=== PATIENT | female | born 1970 | race Caucasian/White ===

== ENCOUNTER 2016-08-03 04:35 | Emergency (ER) | payer MEDICAID ==
[~2016-08-03] VITALS: Ht 170.2 cm; Wt 79.4 kg
[~2016-08-03 04:35] MED LIST: LISI5TAB18 PO; METF500T2 PO; MIC5 PO; NOVR SUBQ
[2016-08-03 04:36] VITALS: BP 157/100
--- NOTE | 2016-08-03 04:48 | NUR ---
PT TAKEN TO BED 6
[2016-08-03] MEDS ORDERED: NACL 0.9% 1,000 ML IV ONE ×2 (04:50)
[2016-08-03] MEDS ORDERED: INSULIN HUMAN REGULAR 100 UNITS/ML 10 ML VIAL IVP ONE (04:50)
--- NOTE | 2016-08-03 04:50 | NUR ---
Dr. Zhu evaluating patient at bedside.
--- NOTE | 2016-08-03 04:55 | NUR ---
45Y F PRESENT TO ER C/O OF HIGH BLOOD SUGAR. PT STATES SHE CHECKED HER SUGAR AT HOME AND IT READS " HIGH TO READ". NO DISTRESS, DENIES PAIN.
[2016-08-03 05:01] LABS: BASOPHILS # (AUTO) 0.3 K/uL (0.00-0.22); EOSINOPHILS # (AUTO) 0.1 K/uL (0-0.4); EOSINOPHILS % (AUTO) 1.5 % (0.0-4.0); HEMATOCRIT 47.3 % (36-48); HEMOGLOBIN 15.3 g/dL (12.0-16.0); LYMPHOCYTES % (AUTO) 11.3 % (20.5-51.1); MEAN CORPUSCULAR HEMOGLOBIN 29 pg (27-31); MEAN CORPUSCULAR HGB CONC 32 g/dL (33-37); MEAN CORPUSCULAR VOLUME 90 fL (80-94); MONOCYTES # (AUTO) 0.5 K/uL (0.8-1.0); MONOCYTES % (AUTO) 5.2 % (1.7-9.3); PLATELET COUNT (AUTO) 199 K/uL (140-450); RED BLOOD CELL COUNT(AUTO) 5.28 MIL/uL (4.20-5.40); RED CELL DISTRIBUTION WIDTH 12.7 % (11.6-13.7); WHITE BLOOD COUNT (AUTO) 8.9 K/uL (4.8-10.8)
[2016-08-03 05:09] LABS: ACETONE, SERUM NEGATIVE (NEGATIVE)
[2016-08-03 05:19] LABS: ALANINE AMINOTRANSFERASE 31 U/L (12-78); ALBUMIN 3.7 g/dL (3.4-5.0); ALKALINE PHOSPHATASE 119 U/L (46-116); ANION GAP 17.4 (8-16); ASPARTATE AMINOTRANSFERASE 14 U/L (15-37); CALCIUM 8.7 mg/dL (8.5-10.1); CARBON DIOXIDE 22.5 mmol/L (21-32); CHLORIDE 93 mmol/L (98-107); CREATININE 1.3 mg/dL (0.6-1.3); GFR ARICAN-AMERICAN 57 mL/min (>90); GFR NON ARICAN-AMERICAN 47 mL/min (>90); POTASSIUM 3.9 mmol/L (3.5-5.1); SODIUM SERUM 129 mmol/L (136-145); TOTAL BILIRUBIN 0.9 mg/dL (0.0-1.0); TOTAL PROTEIN, SERUM 7.9 g/dL (6.4-8.2); UREA NITROGEN, BLOOD 11 mg/dL (7-18)
[2016-08-03 05:21] LABS: GLUCOSE 666 mg/dL (74-106)
[2016-08-03] MEDS ORDERED: INSULIN HUMAN REGULAR 100 UNITS/ML 10 ML VIAL SUBQ ONE ×2 (05:30→07:10)
[2016-08-03 06:26] LABS: APPEARANCE,URINE CLEAR (CLEAR); BILIRUBIN,URINE NEGATIVE (NEGATIVE); BLOOD, URINE NEGATIVE (NEGATIVE); COLOR,URINE YELLOW (YELLOW); LEUKOCYTE ESTERASE ,URINE NEGATIVE (NEGATIVE); NITRITE, URINE NEGATIVE (NEGATIVE); PROTEIN,URINE NEGATIVE (NEGATIVE); UGLUCOSE 3+ (NEGATIVE); UROBILINOGEN,URINE 0.2 EU/dL (0.2 - 1)
--- NOTE | 2016-08-03 07:15 | NUR ---
REPORT GIVEN TO CRISTIANO BARNARD.
[2016-08-03 08:07] VITALS: BP 146/94
--- NOTE | 2016-08-03 08:08 | NUR ---
Patient discharged with v/s stable. Written and verbal after care instructions given and explained. Patient alert, oriented and verbalized understanding of instructions. Ambulatory with steady gait. All questions addressed prior to discharge. ID band removed. Patient advised to follow up with PMD. Rx of LISINOPRIL AND NOVOLOG MIX 70/30 given. Patient educated on indication of medication including possible reaction and side effects. Opportunity to ask questions provided and answered.
== END 2016-08-03 07:20 | disposition home or self-care (01) ==
LOC: MED 04:35
CPT/HCPCS: 36415; 80053; 81003; 82009; 85025; 96372; 99284; J1815; J7030

== ENCOUNTER 2016-11-26 02:18 | Emergency (ER) | payer SELFPAY ==
[~2016-11-26] VITALS: Ht 165.1 cm; Wt 80.5 kg
[2016-11-26 02:25] VITALS: BP 163/139
[2016-11-26 02:53] LABS: HEMATOCRIT 44.8 % (36-48); HEMOGLOBIN 14.9 g/dL (12.0-16.0); MEAN CORPUSCULAR HEMOGLOBIN 30 pg (27-31); MEAN CORPUSCULAR HGB CONC 33 g/dL (33-37); MEAN CORPUSCULAR VOLUME 91 fL (80-94); PLATELET COUNT (AUTO) 213 K/uL (140-450); RED BLOOD CELL COUNT(AUTO) 4.95 MIL/uL (4.20-5.40); WHITE BLOOD COUNT (AUTO) 7.4 K/uL (4.8-10.8)
[2016-11-26 02:59] LABS: BASOPHILS % (MANUAL) 1 % (0-2); EOSINOPHILS % (MANUAL) 2 % (0-4); LYMPHOCYTES % (MANUAL) 31 % (20-46); MONOCYTES % (MANUAL) 4 % (5-12)
[2016-11-26 03:08] LABS: ALBUMIN 3.6 g/dL (3.4-5.0); ANION GAP 10.1 (8-16); CARBON DIOXIDE 31.4 mmol/L (21-32); CREATININE 0.9 mg/dL (0.6-1.3); POTASSIUM 3.5 mmol/L (3.5-5.1); TOTAL BILIRUBIN 0.3 mg/dL (0.0-1.0)
[2016-11-26 03:58] VITALS: BP 149/98
== END 2016-11-26 03:58 | disposition home or self-care (01) ==
LOC: MED 02:18
DX: J06.9 Acute upper respiratory infection, unspecified (principal); E11.9 Type 2 diabetes mellitus without complications; F17.210 Nicotine dependence, cigarettes, uncomplicated; I10 Essential (primary) hypertension; Z91.14 Patient's other noncompliance with medication regimen; Z88.8 Allergy status to other drugs, medicaments and biological substances; Z79.4 Long term (current) use of insulin; Z79.899 Other long term (current) drug therapy
CPT/HCPCS: 71010; 80053; 82948; 85025; 93005; 99285

== ENCOUNTER 2017-01-19 03:33 | Emergency (ER) | payer SELFPAY ==
[~2017-01-19] VITALS: Ht 170.2 cm; Wt 72.6 kg
[~2017-01-19 03:33] MED LIST changes: -METF500T2 PO; -MIC5 PO
[2017-01-19 03:40] VITALS: BP 152/102
--- NOTE | 2017-01-19 03:45 | NUR ---
PT TAKEN TO BED 7
--- NOTE | 2017-01-19 03:46 | NUR ---
BERENICE BAUTISTA MADE AWARE OF PT'S GLUCOSE LEVELS.
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
--- NOTE | 2017-01-19 04:01 | NUR ---
Dr. Levy evaluating patient at bedside.
[2017-01-19] MEDS ORDERED: HYDROcodone/APAP 5/325 MG 1 TAB TAB PO ONE (04:05)
[2017-01-19] MEDS ORDERED: KETOROLAC 60 MG/2 ML VIAL IM ONE (04:05)
--- NOTE | 2017-01-19 04:05 | NUR ---
X-Ray at bedside.
[2017-01-19 04:50] VITALS: BP 135/84
--- NOTE | 2017-01-19 04:50 | NUR ---
Patient discharged with v/s stable. Written and verbal after care instructions given and explained. Patient alert, oriented and verbalized understanding of instructions. Ambulatory with steady gait. All questions addressed prior to discharge. ID band removed. Patient advised to follow up with PMD OR RETURN TO ER IF CONDITION WORSENS Rx of IBUPROFEN AND TRAMADOL given. Patient educated on indication of medication including possible reaction and side effects.PER ER MD PT TO CONTINUE TAKING MEDS FOR DM AND F/U WITH PMD. Opportunity to ask questions provided and answered.
== END 2017-01-19 04:50 | disposition home or self-care (01) ==
LOC: MED 03:33
DX: S63.502A Unspecified sprain of left wrist, initial encounter (principal); E11.9 Type 2 diabetes mellitus without complications; I10 Essential (primary) hypertension; Z88.8 Allergy status to other drugs, medicaments and biological substances; Z79.4 Long term (current) use of insulin; Z79.899 Other long term (current) drug therapy; Z87.891 Personal history of nicotine dependence; W18.2XXA Fall in (into) shower or empty bathtub, initial encounter; Z91.81 History of falling; Y93.F9 Activity, other caregiving; Y92.091 Bathroom in other non-institutional residence as the place of occurrence of the external cause; Y99.8 Other external cause status
CPT/HCPCS: 29125; 73130; 82948; 96372; 99284; J1885; Q0092

== ENCOUNTER 2017-04-05 02:21 | Emergency (ER) | payer SELFPAY ==
[~2017-04-05] VITALS: Ht 167.6 cm; Wt 72.1 kg
[2017-04-05 02:26] VITALS: BP 177/99
--- NOTE | 2017-04-05 02:26 | NUR ---
TO ER BED 11
[2017-04-05 02:34] VITALS: BP 177/99
[2017-04-05] MEDS ORDERED: IBUPROFEN 600 MG TAB PO ONE (02:35)
--- NOTE | 2017-04-05 02:48 | NUR ---
PATIENT PRESENTS TO ED WITH C/O LEFT INDEX FINGER PAIN. PT DENIES N/V/D; SKIN IS PINK/WARM/DRY; AAOX4 WITH EVEN AND STEADY GAIT; LUNGS CLEAR BL; HR EVEN AND REGULAR; PT DENIES ANY FEVER, CP, SOB, OR COUGH AT THIS TIME; PATIENT STATES PAIN OF 9/10 AT THIS TIME; VSS; PATIENT POSITIONED FOR COMFORT; HOB ELEVATED; BEDRAILS UP X2; BED DOWN. ER MD MADE AWARE OF PT STATUS.
== END 2017-04-05 04:40 | disposition home or self-care (01) ==
LOC: MED 02:21
DX: S62.615A Displaced fracture of proximal phalanx of left ring finger, initial encounter for closed fracture (principal); E11.9 Type 2 diabetes mellitus without complications; I10 Essential (primary) hypertension; F17.210 Nicotine dependence, cigarettes, uncomplicated; Z88.8 Allergy status to other drugs, medicaments and biological substances; Z79.899 Other long term (current) drug therapy; W19.XXXA Unspecified fall, initial encounter; Y93.89 Activity, other specified; Y92.89 Other specified places as the place of occurrence of the external cause; Y99.8 Other external cause status
CPT/HCPCS: 29130; 73140; 82948; 99284; Q0092

== ENCOUNTER 2018-01-28 00:35 | Emergency (ER) | payer MEDICAID ==
[~2018-01-28] VITALS: Ht 172.7 cm; Wt 77.1 kg
[2018-01-28 00:38] VITALS: BP 152/90
--- NOTE | 2018-01-28 00:38 | NUR ---
TO BED # 9 AMBULATORY, REPORT GIVEN TO KATALINA BARNARD
--- NOTE | 2018-01-28 00:40 | NUR ---
ASSUMED CARE OF PT AT THIS TIME. C/O ELEVATED BLOOD GLUCOSE X 3 WEEKS AND UTI SYMPTOMS X 1 WEEK. AAOX4 WITH EVEN AND STEADY GAIT; PATIENT STATES PAIN OF 7/10; VSS; PATIENT POSITIONED FOR COMFORT; HOB ELEVATED; BEDRAILS UP X2; BED DOWN. ER MD MADE AWARE OF PT STATUS. WILL CONTINUE TO MONITOR.
--- NOTE | 2018-01-28 00:56 | NUR ---
Dr. Leach evaluating patient at bedside.
[2018-01-28] MEDS ORDERED: NACL 0.9% 1,000 ML IV ONE (00:59)
[2018-01-28 01:38] LABS: BASOPHILS # (AUTO) 0.1 K/uL (0.00-0.22); BASOPHILS % (AUTO) 0.9 % (0.0-2.0); EOSINOPHILS # (AUTO) 0.1 K/uL (0-0.4); EOSINOPHILS % (AUTO) 1.2 % (0.0-4.0); HEMATOCRIT 46.7 % (36-48); HEMOGLOBIN 15.4 g/dL (12.0-16.0); LYMPHOCYTES # (AUTO) 1.2 K/uL (2.5-16.5); LYMPHOCYTES % (AUTO) 17.9 % (20.5-51.1); MEAN CORPUSCULAR HEMOGLOBIN 29 pg (27-31); MEAN CORPUSCULAR HGB CONC 33 g/dL (33-37); MEAN CORPUSCULAR VOLUME 88.3 fL (80-94); MONOCYTES # (AUTO) 0.6 K/uL (0.8-1.0); MONOCYTES % (AUTO) 8.9 % (1.7-9.3); NEUTROPHILS # (AUTO) 4.9 K/uL (1.8-7.7); NEUTROPHILS % (AUTO) 71.1 % (42.2-75.2); PLATELET COUNT (AUTO) 263 K/uL (140-450); RED BLOOD CELL COUNT(AUTO) 5.29 MIL/uL (4.20-5.40); RED CELL DISTRIBUTION WIDTH 13.5 % (11.6-13.7); WHITE BLOOD COUNT (AUTO) 6.9 K/uL (4.8-10.8)
[2018-01-28 01:59] LABS: ALBUMIN 3.8 g/dL (3.4-5.0); CARBON DIOXIDE 29.1 mmol/L (21-32); POTASSIUM 4.1 mmol/L (3.5-5.1); TOTAL BILIRUBIN 0.6 mg/dL (0.0-1.0)
[2018-01-28 02:02] LABS: CREATININE 0.8 mg/dL (0.6-1.3)
[2018-01-28 02:30] VITALS: BP 148/89
--- NOTE | 2018-01-28 02:30 | NUR ---
Patient discharged with v/s stable. Written and verbal after care instructions given and explained. Patient alert, oriented and verbalized understanding of instructions. Ambulatory with steady gait. All questions addressed prior to discharge. ID band removed. Patient advised to follow up with PMD. Rx of SIMVASTATIN, LISINOPRIL, NOVOLIN N, CIPRO, AND PYRIDIUM given. Patient educated on indication of medication including possible reaction and side effects. Opportunity to ask questions provided and answered.
== END 2018-01-28 02:30 | disposition home or self-care (01) ==
LOC: MED 00:35
DX: E11.65 Type 2 diabetes mellitus with hyperglycemia (principal); Z79.4 Long term (current) use of insulin; N39.0 Urinary tract infection, site not specified; I10 Essential (primary) hypertension; Z88.8 Allergy status to other drugs, medicaments and biological substances; Z79.899 Other long term (current) drug therapy
CPT/HCPCS: 36415; 80053; 81002; 81025; 82948; 83690; 85025; 96360; 99283; J7030

== ENCOUNTER 2018-02-15 04:40 | Emergency (ER) | payer MEDICAID ==
[~2018-02-15] VITALS: Ht 170.2 cm; Wt 74.8 kg
[2018-02-15 04:46] VITALS: BP 152/82
[2018-02-15] MEDS ORDERED: NACL 0.9% 500 ML IV ONE (05:04)
[2018-02-15] MEDS ORDERED: ONDANSETRON 4 MG/2 ML VIAL IVP ONE (05:05)
[2018-02-15] MEDS ORDERED: KETOROLAC 30 MG/ML VIAL IVP ONE (05:05)
[2018-02-15 05:56] LABS: BASOPHILS % (AUTO) 0.1 % (0.0-2.0); EOSINOPHILS % (AUTO) 0.2 % (0.0-4.0); HEMATOCRIT 50.6 % (36-48); HEMOGLOBIN 16.6 g/dL (12.0-16.0); LYMPHOCYTES # (AUTO) 0.4 K/uL (2.5-16.5); LYMPHOCYTES % (AUTO) 4.8 % (20.5-51.1); MEAN CORPUSCULAR HEMOGLOBIN 29 pg (27-31); MEAN CORPUSCULAR HGB CONC 33 g/dL (33-37); MEAN CORPUSCULAR VOLUME 87.7 fL (80-94); MONOCYTES # (AUTO) 0.9 K/uL (0.8-1.0); MONOCYTES % (AUTO) 10.8 % (1.7-9.3); NEUTROPHILS # (AUTO) 7.1 K/uL (1.8-7.7); NEUTROPHILS % (AUTO) 84.1 % (42.2-75.2); PLATELET COUNT (AUTO) 149 K/uL (140-450); RED BLOOD CELL COUNT(AUTO) 5.77 MIL/uL (4.20-5.40); RED CELL DISTRIBUTION WIDTH 13.5 % (11.6-13.7); WHITE BLOOD COUNT (AUTO) 8.5 K/uL (4.8-10.8)
[2018-02-15 06:05] LABS: ALBUMIN 3.4 g/dL (3.4-5.0); ANION GAP 15.1 (8-16); CARBON DIOXIDE 28.4 mmol/L (21-32); POTASSIUM 3.5 mmol/L (3.5-5.1); TOTAL BILIRUBIN 1.1 mg/dL (0.0-1.0)
[2018-02-15] MEDS ORDERED: INSULIN REGULAR, HUMAN 100 UNIT/ML VIAL IVP ONE (06:10)
[2018-02-15 06:33] VITALS: BP 152/82
== END 2018-02-15 06:33 | disposition home or self-care (01) ==
LOC: MED 04:40
DX: A08.4 Viral intestinal infection, unspecified (principal); E11.9 Type 2 diabetes mellitus without complications; I10 Essential (primary) hypertension; Z88.5 Allergy status to narcotic agent; Z79.899 Other long term (current) drug therapy; Z79.4 Long term (current) use of insulin
CPT/HCPCS: 36415; 80053; 85025; 96361; 96374; 96375; 99283; J1885; J2405; J7030; J1815

== ENCOUNTER 2018-03-17 01:11 | Emergency (ER) | payer MEDICAID ==
[~2018-03-17] VITALS: Ht 170.2 cm; Wt 76.0 kg
[2018-03-17 01:23] VITALS: BP 147/101
--- NOTE | 2018-03-17 01:30 | NUR ---
PT PRESENTS TO ED WITH C/O COUGH. LUNG SOUNDS CLEAR TO ASCULTATION. NO OBVIOUS S/S OF DISTRESS NOTED. PT PLACED INTO BED, PENDING MD SOSA. PMH--DENIES
--- NOTE | 2018-03-17 01:59 | NUR ---
Patient discharged with v/s stable. Written and verbal after care instructions given and explained. Patient alert, oriented and verbalized understanding of instructions. Ambulatory with steady gait. All questions addressed prior to discharge. ID band removed. Patient advised to follow up with PMD. Rx of PREDNISONE, PROMETHAZINE given. Patient educated on indication of medication including possible reaction and side effects. Opportunity to ask questions provided and answered.
[2018-03-17 02:00] VITALS: BP 141/97
== END 2018-03-17 02:00 | disposition home or self-care (01) ==
LOC: MED 01:11
DX: R05 Cough (principal); J02.9 Acute pharyngitis, unspecified; R51 Headache; E11.9 Type 2 diabetes mellitus without complications; I10 Essential (primary) hypertension; Z79.4 Long term (current) use of insulin; Z79.899 Other long term (current) drug therapy; Z88.5 Allergy status to narcotic agent
CPT/HCPCS: 99283

== ENCOUNTER 2018-06-07 11:56 | Emergency (ER) | payer MEDICAID ==
[~2018-06-07] VITALS: Ht 172.7 cm; Wt 74.1 kg
[2018-06-07 12:20] VITALS: BP 150/51
--- NOTE | 2018-06-07 12:51 | NUR ---
PATIENT AMBULATED TO BED 2.
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
[2018-06-07 13:56] VITALS: BP 142/52
--- NOTE | 2018-06-07 13:58 | NUR ---
Patient discharged with v/s stable. Written and verbal after care instructions given and explained. Patient alert, oriented and verbalized understanding of instructions. Ambulatory with to car. All questions addressed prior to discharge. ID band removed. Patient advised to follow up with PMD. Rx of VALIUM, NOVOLOG, ACCU-CHECK, [employer] SUPER THIN 11 given. Patient educated on indication of medication including possible reaction and side effects. Opportunity to ask questions provided and answered.
== END 2018-06-07 13:58 | disposition home or self-care (01) ==
LOC: MED 11:56
DX: E11.65 Type 2 diabetes mellitus with hyperglycemia (principal); M54.2 Cervicalgia; I10 Essential (primary) hypertension; E78.5 Hyperlipidemia, unspecified; Z76.0 Encounter for issue of repeat prescription; Z88.5 Allergy status to narcotic agent; Z79.4 Long term (current) use of insulin; Z79.899 Other long term (current) drug therapy
CPT/HCPCS: 82948; 99283

== ENCOUNTER 2018-06-29 01:36 | Emergency (ER) | payer SELFPAY ==
--- NOTE | 2018-06-29 01:40 | NUR ---
CALLED FOR PATIENT TO TRIAGE, NO RESPONSE AT THIS TIME
--- NOTE | 2018-06-29 02:00 | NUR ---
PATIENT CALLED FOR TRIAGE. NO RESPONSE.
--- NOTE | 2018-06-29 02:24 | NUR ---
PATIENT CALLED, NO REPONSE. LWBS.
== END 2018-06-29 02:24 | disposition left against medical advice (07) ==
LOC: MED 01:36
DX: H92.09 Otalgia, unspecified ear (principal); Z53.21 Procedure and treatment not carried out due to patient leaving prior to being seen by health care provider

== ENCOUNTER 2018-07-01 04:33 | Emergency (ER) | payer MEDICAID ==
[~2018-07-01] VITALS: Ht 170.2 cm; Wt 73.9 kg
[2018-07-01 04:36] VITALS: BP 140/77
--- NOTE | 2018-07-01 04:36 | NUR ---
TO BED # 2 AMBULATORY
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
--- NOTE | 2018-07-01 04:41 | NUR ---
Dr. Tuttle evaluating patient at bedside.
[2018-07-01] MEDS ORDERED: CEPHALEXIN 500 MG CAP PO ONE (04:45)
--- NOTE | 2018-07-01 04:45 | NUR ---
DR BLAKELY MADE AWARE OF BLOOD GLUCOSE 256. OK FOR DISCHARGE.
[2018-07-01 05:10] VITALS: BP 140/77
== END 2018-07-01 05:10 | disposition home or self-care (01) ==
LOC: MED 04:33
DX: L03.032 Cellulitis of left toe (principal); E11.9 Type 2 diabetes mellitus without complications; I10 Essential (primary) hypertension; Z88.5 Allergy status to narcotic agent; Z79.4 Long term (current) use of insulin; Z79.899 Other long term (current) drug therapy
CPT/HCPCS: 82948; 99283

== ENCOUNTER 2018-07-03 23:49 | Emergency (ER) | payer MEDICAID ==
[~2018-07-03] VITALS: Ht 170.2 cm; Wt 73.9 kg
[2018-07-03 23:50] VITALS: BP 155/89
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
--- NOTE | 2018-07-03 23:50 | NUR ---
PT TRIAGED AT BEDSIDE, PT WITH FAMILY/FRIEND
--- NOTE | 2018-07-04 00:13 | NUR ---
Dr. Leach evaluating patient at bedside.
--- NOTE | 2018-07-04 00:15 | NUR ---
X-Ray at bedside.
--- NOTE | 2018-07-04 00:17 | NUR ---
PT TAKEN TO XRAY
[2018-07-04] MEDS ORDERED: HYDROcodone/APAP 5/325 MG 1 TAB TAB PO ONE (00:30)
[2018-07-04] MEDS ORDERED: LIDOCAINE 1% 500 MG/50 ML VIAL INJ SCH (00:30)
--- NOTE | 2018-07-04 00:35 | NUR ---
UNABLE TO REMOVE 1% LIDOCAINE 500MG/5OML ORDERED FROM ER PYXIS. DR FRYE MADE AWARE. VERBAL ORDER FOR 1% LIDOCAINE 50MG/5ML TO BE ADMINISTERED BY ER MD FOR I&D PROCEDURE. MED OVERRODE FROM ER PYXIS.
[2018-07-04] MEDS ORDERED: LIDOCAINE MPF 1% 5mL VIAL ONE (00:50)
--- NOTE | 2018-07-04 01:00 | NUR ---
DR FRYE AT BEDSIDE FOR L TOE I&D
[2018-07-04] MEDS ORDERED: BACITRACIN OINT 500 UNITS/GM PKT TP ONE (01:15)
--- NOTE | 2018-07-04 01:20 | NUR ---
L TOE APPLIED WITH BACITRACIN, COVERED IN NONADHERENT GAUZE AND KERLIX WRAP, PT TOLERATED WELL, +CMS DISTALLY.
[2018-07-04 01:24] VITALS: BP 127/86
--- NOTE | 2018-07-04 01:25 | NUR ---
Patient discharged with v/s stable. Written and verbal after care instructions given and explained. Patient alert, oriented and verbalized understanding of instructions. Ambulatory with steady gait. All questions addressed prior to discharge. ID band removed. Patient advised to follow up with PMD. Rx of BACTRIM, ULTRAM given; INSTRUCTED TO TAKE KEEP TAKING KEFLEX PRESCRIBED. Patient educated on indication of medication including possible reaction and side effects. Opportunity to ask questions provided and answered.
== END 2018-07-04 01:25 | disposition home or self-care (01) ==
LOC: MED 23:49
DX: L03.032 Cellulitis of left toe (principal); E11.9 Type 2 diabetes mellitus without complications; I10 Essential (primary) hypertension; E78.5 Hyperlipidemia, unspecified; Z79.899 Other long term (current) drug therapy; Z88.5 Allergy status to narcotic agent
CPT/HCPCS: 10060; 73660; 82948; 99283; J2001

== ENCOUNTER 2018-09-10 02:00 | Emergency (ER) | payer MEDICAID ==
[~2018-09-10] VITALS: Ht 170.2 cm; Wt 70.3 kg
[2018-09-10 02:00] VITALS: BP 154/98
--- NOTE | 2018-09-10 02:20 | NUR ---
PT AMBULATED TO BED #10
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
[2018-09-10] MEDS ORDERED: NACL 0.9% 1,000 ML IV ONE (02:35)
[2018-09-10 02:47] LABS: APPEARANCE,URINE CLEAR (CLEAR); BILIRUBIN,URINE NEGATIVE (NEGATIVE); BLOOD, URINE NEGATIVE (NEGATIVE); COLOR,URINE YELLOW (YELLOW); LEUKOCYTE ESTERASE ,URINE NEGATIVE (NEGATIVE); NITRITE, URINE NEGATIVE (NEGATIVE); UGLUCOSE 3+ (NEGATIVE)
[2018-09-10 02:48] LABS: BASOPHILS % (AUTO) 0.3 % (0.0-2.0); EOSINOPHILS # (AUTO) 0.1 K/uL (0-0.4); HEMATOCRIT 42.5 % (36-48); HEMOGLOBIN 14.6 g/dL (12.0-16.0); LYMPHOCYTES # (AUTO) 1.6 K/uL (2.5-16.5); LYMPHOCYTES % (AUTO) 27.4 % (20.5-51.1); MEAN CORPUSCULAR HEMOGLOBIN 31 pg (27-31); MEAN CORPUSCULAR HGB CONC 34 g/dL (33-37); MEAN CORPUSCULAR VOLUME 89.7 fL (80-94); MONOCYTES # (AUTO) 0.5 K/uL (0.8-1.0); MONOCYTES % (AUTO) 8.7 % (1.7-9.3); NEUTROPHILS # (AUTO) 3.5 K/uL (1.8-7.7); NEUTROPHILS % (AUTO) 61.6 % (42.2-75.2); PLATELET COUNT (AUTO) 174 K/uL (140-450); RED BLOOD CELL COUNT(AUTO) 4.73 MIL/uL (4.20-5.40); RED CELL DISTRIBUTION WIDTH 12.9 % (11.6-13.7); WHITE BLOOD COUNT (AUTO) 5.7 K/uL (4.8-10.8)
[2018-09-10] MEDS ORDERED: LIDOCAINE/EPI 1% 1:100000 20 ML VIAL INJ ONE (02:50)
--- NOTE | 2018-09-10 02:50 | NUR ---
PT REFUSED ABG. PER MD TO TRY VBG. GOT BLOOD FROM PHLOBOTOMIST AND TRIED ANALYZING BLOOD IN BOTH BLOOD GAS MACHINE BUT BLOOD IS CLOTTING TOO FAST AND MACHINE IS NOT DETECTING SAMPLE. ER MD AWARE . PT NO IN ANY DISTRESS. ON ROOM AIR.
[2018-09-10 03:07] LABS: ANION GAP 13.1 (8-16); CARBON DIOXIDE 26.5 mmol/L (21-32); CREATININE 0.9 mg/dL (0.6-1.3); POTASSIUM 3.6 mmol/L (3.5-5.1)
[2018-09-10 03:18] LABS: RBC,URINE 0-5 /HPF (0-5); WBC,URINE 0-5 /HPF (0-5)
--- NOTE | 2018-09-10 03:20 | NUR ---
PT IS AWAKE, LAYING ON BED. C/O PAIN 8/10 ON LEFT HIP ABSCESS. NO DRAINAGE ON ABSCESS. DR. PEACOCK AWARE. WILL CONTINUE TO MONITOR.
[2018-09-10] MEDS ORDERED: INSULIN REGULAR, HUMAN 100 UNIT/ML VIAL SUBQ ONE (03:40)
[2018-09-10 04:49] VITALS: BP 154/98
--- NOTE | 2018-09-10 04:49 | NUR ---
PT DISCHARGED WITH PAPERWORK. RX FLUCONAZOLE, CLINDAMYCIN. EDUCATED PT REGARDING MEDICATIONS AND SIDE EFFECTS. EDUCATED PT REGARDING DISCHARGE DIAGNOSIS. PT VERBALIZED UNDERSTANDING OF TEACHING. TOLD PT TO FOLLOW UP WITH PCP AND WHEN TO RETURN TO ED. PT VSS. ALL QUESTIONS ANSWERED.
== END 2018-09-10 04:49 | disposition home or self-care (01) ==
LOC: MED 02:00
DX: L02.31 Cutaneous abscess of buttock (principal); E11.65 Type 2 diabetes mellitus with hyperglycemia; I10 Essential (primary) hypertension; Z79.899 Other long term (current) drug therapy; Z79.4 Long term (current) use of insulin; Z88.5 Allergy status to narcotic agent
CPT/HCPCS: 36415; 80048; 81001; 82948; 85025; 96360; 96372; 99283; J1815; J7030; J2001

== ENCOUNTER 2018-11-24 01:15 | Emergency (ER) | payer MEDICAID ==
[~2018-11-24] VITALS: Ht 170.2 cm; Wt 72.6 kg
--- NOTE | 2018-11-24 01:20 | NUR ---
PT AMBULATED TO BED 07.
[2018-11-24 01:24] VITALS: BP 172/91
--- NOTE | 2018-11-24 01:28 | NUR ---
C/O HIGH BLOOD SUGAR, DIZZINESS, WEAKNESS, AND NAUSEA X TODAY. BS 478. TOOK INSULIN LAST NIGHT. NO MEDICATION TODAY. NEURO INTACT. PUPILS STEFFANIE. 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 FACIAL SYMMETRY. GCS 15. AMB WITH STEADY GAIT. SPEECH CLEAR. BP 172/91. AA0X4. BED IS DOWN, LOCKED, BED RAIL X 1, ERMD TO SEE PT. PMH- HTN, DM, HIGH CHOLESTEROL RX- 75 25 INSULIN
--- NOTE | 2018-11-24 01:33 | NUR ---
DR. PHAM BEDSIDE EVALUATING PT
[2018-11-24] MEDS ORDERED: NACL 0.9% 500 ML IV ONE ×2 (01:38)
--- NOTE | 2018-11-24 02:00 | NUR ---
PT UNABLE TO GIVE URINE AT THIS TIME
--- NOTE | 2018-11-24 02:00 | NUR ---
XRAY AT BEDSIDE
[2018-11-24 02:02] LABS: HEMATOCRIT 46.2 % (36-48); HEMOGLOBIN 15.8 g/dL (12.0-16.0); MEAN CORPUSCULAR HEMOGLOBIN 32 pg (27-31); MEAN CORPUSCULAR HGB CONC 34 g/dL (33-37); MEAN CORPUSCULAR VOLUME 92.1 fL (80-94); PLATELET COUNT (AUTO) 266 K/uL (140-450); RED BLOOD CELL COUNT(AUTO) 5.02 MIL/uL (4.20-5.40); WHITE BLOOD COUNT (AUTO) 6.7 K/uL (4.8-10.8)
[2018-11-24 02:08] LABS: ACETONE, SERUM NEGATIVE (NEGATIVE)
[2018-11-24 02:14] LABS: ALBUMIN 3.8 g/dL (3.4-5.0); ANION GAP 15.8 (8-16); CHLORIDE 96 mmol/L (98-107); CREATININE 0.8 mg/dL (0.6-1.3); GFR ARICAN-AMERICAN 99 mL/min (>90); POTASSIUM 3.8 mmol/L (3.5-5.1); SODIUM SERUM 135 mmol/L (136-145); TOTAL BILIRUBIN 0.5 mg/dL (0.0-1.0); UREA NITROGEN, BLOOD 9 mg/dL (7-18)
[2018-11-24 02:16] LABS: GLUCOSE 430 mg/dL (74-106)
[2018-11-24 02:25] LABS: LYMPHOCYTES % (MANUAL) 18 % (20-46); MONOCYTES % (MANUAL) 6 % (5-12)
--- NOTE | 2018-11-24 02:38 | NUR ---
ACCU CHECK 380
[2018-11-24] MEDS ORDERED: INSULIN REGULAR, HUMAN 100 UNIT/ML VIAL IVP ONE (03:15)
--- NOTE | 2018-11-24 03:21 | NUR ---
PT AMB TO RESTROOM WITH STEADY GAIT
[2018-11-24] MEDS ORDERED: NACL 0.9% 1,000 ML IV ONE (03:25)
[2018-11-24 03:31] LABS: APPEARANCE,URINE CLEAR (CLEAR); BILIRUBIN,URINE NEGATIVE (NEGATIVE); BLOOD, URINE 1+ (NEGATIVE); COLOR,URINE YELLOW (YELLOW); LEUKOCYTE ESTERASE ,URINE NEGATIVE (NEGATIVE); NITRITE, URINE NEGATIVE (NEGATIVE); UGLUCOSE 3+ (NEGATIVE)
--- NOTE | 2018-11-24 03:35 | NUR ---
VSS AT THIS TIME. PT AA0X4. LIGHTS TURNED OFF FOR PT COMFORT
[2018-11-24 03:40] LABS: RBC,URINE 0-5 /HPF (0-5); WBC,URINE 0-5 /HPF (0-5)
[2018-11-24 03:41] LABS: YEAST,URINE Few /HPF (None Seen)
--- NOTE | 2018-11-24 03:55 | NUR ---
ACCU CHECK 144, DR PHAM NOTIFIED
[2018-11-24 04:00] VITALS: BP 123/70
--- NOTE | 2018-11-24 04:00 | NUR ---
Patient discharged with v/s stable. Written and verbal after care instructions given and explained. Patient verbalized understanding. Ambulatory with steady gait. All questions addressed prior to discharge. Advised to follow up with PMD.
== END 2018-11-24 04:00 | disposition home or self-care (01) ==
LOC: MED 01:15
DX: E11.65 Type 2 diabetes mellitus with hyperglycemia (principal); Z71.6 Tobacco abuse counseling; E78.00 Pure hypercholesterolemia, unspecified; I10 Essential (primary) hypertension; F17.210 Nicotine dependence, cigarettes, uncomplicated; Z79.4 Long term (current) use of insulin; Z79.899 Other long term (current) drug therapy; Z88.5 Allergy status to narcotic agent
CPT/HCPCS: 36415; 71045; 80053; 81001; 82009; 82948; 85025; 87086; 96361; 96374; 99284; J1815; J7030; Q0092

== ENCOUNTER 2019-01-15 01:02 | Emergency (ER) | payer MEDICAID ==
[~2019-01-15] VITALS: Ht 170.2 cm; Wt 68.0 kg
[2019-01-15 01:04] VITALS: BP 172/107
[2019-01-15] MEDS ORDERED: APAP/BUTAL/CAFF 325/50/40 MG 1 TAB PO ONE (01:10)
[2019-01-15] MEDS ORDERED: cloNIDine 0.1 MG TAB PO ONE (01:10)
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
[2019-01-15] MEDS ORDERED: HYDROcodone/APAP 5/325 MG 1 TAB TAB PO ONE (01:15)
[2019-01-15 01:37] VITALS: BP 138/88
--- NOTE | 2019-01-15 01:37 | NUR ---
Patient discharged with v/s stable. Written and verbal after care instructions given and explained. Patient alert, oriented and verbalized understanding of instructions. Ambulatory with steady gait. All questions addressed prior to discharge. ID band removed. Patient advised to follow up with PMD. Rx of FIORICET; NAPROXEN given. Patient educated on indication of medication including possible reaction and side effects. Opportunity to ask questions provided and answered.
== END 2019-01-15 01:38 | disposition home or self-care (01) ==
LOC: MED 01:02
DX: S09.90XA Unspecified injury of head, initial encounter (principal); I10 Essential (primary) hypertension; E11.9 Type 2 diabetes mellitus without complications; Z79.4 Long term (current) use of insulin; Z79.899 Other long term (current) drug therapy; Z88.5 Allergy status to narcotic agent; W22.8XXA Striking against or struck by other objects, initial encounter; Y93.89 Activity, other specified; Y92.89 Other specified places as the place of occurrence of the external cause; Y99.8 Other external cause status
CPT/HCPCS: 99283

== ENCOUNTER 2019-03-16 01:23 | Emergency (ER) | payer SELFPAY ==
[~2019-03-16] VITALS: Ht 170.2 cm; Wt 70.3 kg
[2019-03-16 01:45] VITALS: BP 110/85
--- NOTE | 2019-03-16 01:45 | NUR ---
TO BED # 04 AMBULATORY
--- NOTE | 2019-03-16 02:10 | NUR ---
48 YEAR OLD FEMALE COMPLAINS OF COUGH X 3 DAYS. PATIENT STATES SHE HAS SOME NON-RADIATING CHEST PAIN WHEN SHE COUGHS. PATIENT STATES HE HAS ALSO HAD A HEADACHE. LUNGS CTABL, BREATHING EVEN AND UNLABORED. BED IN LOWEST POSITION, LOCKED, BED RAIL UPX1.
[2019-03-16 02:45] VITALS: BP 110/85
--- NOTE | 2019-03-16 02:45 | NUR ---
Patient discharged with v/s stable. Written and verbal after care instructions ABOUT UPPER RESPIRATORY INFECTIONS given and explained. Patient alert, oriented and verbalized understanding of instructions. Ambulatory with steady gait. All questions addressed prior to discharge. ID band removed. Patient advised to follow up with PMD. Rx of PROMETHAZINE/DEXTROMETHORPHAN given. Patient educated on indication of medication including possible reaction and side effects. Opportunity to ask questions provided and answered.
== END 2019-03-16 02:45 | disposition home or self-care (01) ==
LOC: MED 01:23
DX: J06.9 Acute upper respiratory infection, unspecified (principal); E11.9 Type 2 diabetes mellitus without complications; I10 Essential (primary) hypertension; F17.200 Nicotine dependence, unspecified, uncomplicated; Z79.899 Other long term (current) drug therapy; Z79.4 Long term (current) use of insulin; Z88.5 Allergy status to narcotic agent
CPT/HCPCS: 99283

== ENCOUNTER 2019-04-27 04:16 | Emergency (ER) | payer MEDICAID ==
[~2019-04-27] VITALS: Ht 167.6 cm; Wt 70.8 kg
[2019-04-27 04:24] VITALS: BP 148/78
--- NOTE | 2019-04-27 04:34 | NUR ---
48/F S/P FALL CC: RLE PAIN, BUE WRIST PAIN 11/21 ASOCIATED WITH FALL 2D AGO. EVEN UNLABORED BREATHING AOX4. STEADY GAIT. FOLLOWS COMMANDS. NO ALOC. BED IN LOWEST POSITION. WILL CONTINUE TO MONITOR.
[2019-04-27] MEDS ORDERED: KETOROLAC 30 MG/ML VIAL IM ONE (06:15)
--- NOTE | 2019-04-27 07:00 | NUR ---
ENDORSED CARE TO INCOMING SHIFT RN LIBAN FOR CONTINUITY OF CARE.
--- NOTE | 2019-04-27 07:01 | NUR ---
RECEIVED REPORT FROM AKIL BAE. TRANSFER OF CARE AT THIS TIME
--- NOTE | 2019-04-27 07:08 | NUR ---
DENIES PAIN AFTER MEDICATION.
[2019-04-27 07:11] VITALS: BP 148/78
== END 2019-04-27 07:12 | disposition home or self-care (01) ==
LOC: MED 04:16
DX: M79.18 Myalgia, other site (principal); W19.XXXA Unspecified fall, initial encounter
CPT/HCPCS: 96372; 99283; J1885

== ENCOUNTER 2019-06-29 22:15 | Emergency (ER) | payer OTHER, MEDICAID ==
[~2019-06-29] VITALS: Ht 170.2 cm; Wt 72.1 kg
[2019-06-29 22:23] VITALS: BP 147/85
[2019-06-29] MEDS ORDERED: cefTRIAXone 1,000 MG VIAL ONE (22:24)
[2019-06-29] MEDS ORDERED: KETOROLAC 60 MG/2 ML VIAL IM ONE (22:55)
[2019-06-30 01:50] VITALS: BP 132/78
== END 2019-06-30 01:49 | disposition home or self-care (01) ==
LOC: MED 22:15
DX: M25.531 Pain in right wrist (principal); M54.5 Low back pain; E11.22 Type 2 diabetes mellitus with diabetic chronic kidney disease; F17.210 Nicotine dependence, cigarettes, uncomplicated; Z79.899 Other long term (current) drug therapy; V89.2XXA Person injured in unspecified motor-vehicle accident, traffic, initial encounter; Y93.89 Activity, other specified; Y92.89 Other specified places as the place of occurrence of the external cause; Y99.8 Other external cause status
CPT/HCPCS: 72100; 73110; 96372; 99283; J1885; J0696

== ENCOUNTER 2019-08-17 02:44 | Emergency (ER) | payer MEDICAID, OTHER ==
[~2019-08-17] VITALS: Ht 170.2 cm; Wt 71.7 kg
[2019-08-17 02:51] VITALS: BP 153/102
--- NOTE | 2019-08-17 02:56 | NUR ---
PT AMBULATED TO BED 4
--- NOTE | 2019-08-17 03:04 | NUR ---
URINE SAMPLE AT BEDSIDE
--- NOTE | 2019-08-17 03:18 | NUR ---
PT AMBULATES TO BED WITH UPRIGHT STEADY GAIT. LYING IN BED WITH NO ACUTE DISTRESS AT THIS TIME.
[2019-08-17 04:11] LABS: BARBITURATE, URINE NEGATIVE ng/ml (NEG <=200); BENZODIAZEPINE, URINE NEGATIVE ng/mL (NEG <=200); CANNABINOID, URINE NEGATIVE ng/mL (NEG <=50); COCAINE, URINE NEGATIVE ng/mL (NEG <=300); OPIATE, URINE NEGATIVE ng/mL (NEG <=2000); PHENCYCLIDINE SCREEN,URINE NEGATIVE ng/mL (NEG <=25)
[2019-08-17 04:24] VITALS: BP 153/102
== END 2019-08-17 04:24 | disposition home or self-care (01) ==
LOC: MED 02:44
DX: M54.5 Low back pain (principal); E11.9 Type 2 diabetes mellitus without complications; I10 Essential (primary) hypertension; Z79.4 Long term (current) use of insulin; Z79.899 Other long term (current) drug therapy; Z88.5 Allergy status to narcotic agent
CPT/HCPCS: 72100; 80305; 81002; 81025; 99284

== ENCOUNTER 2019-09-02 22:01 | Emergency (ER) | payer MEDICAID ==
[~2019-09-02] VITALS: Ht 170.2 cm; Wt 71.2 kg
[2019-09-02 22:05] VITALS: BP 156/103
--- NOTE | 2019-09-02 22:10 | NUR ---
PT AMBULATED TO LOBBY TO A/W BED
--- NOTE | 2019-09-02 22:36 | NUR ---
PT TAKEN TO BED 7
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
[2019-09-02] MEDS ORDERED: KETOROLAC 60 MG/2 ML VIAL IM ONE (22:50)
--- NOTE | 2019-09-02 23:26 | NUR ---
Jaime dos santos in [facility] - 09/02/19 at 2326 by NABOR - TEXTED ON-CALL HOSPITALIST FOR ADMISSION (CONFIRMED WITH NADEGE DOWNEY) - TEXTED BACK ACCEPTANCE
--- NOTE | 2019-09-02 23:26 | NUR ---
Dr. Rice examining patient.
[2019-09-03 00:20] VITALS: BP 147/84
== END 2019-09-03 00:19 | disposition home or self-care (01) ==
LOC: MED 22:01
DX: M54.5 Low back pain (principal); E11.9 Type 2 diabetes mellitus without complications; E78.5 Hyperlipidemia, unspecified; F17.210 Nicotine dependence, cigarettes, uncomplicated; I10 Essential (primary) hypertension; Z79.899 Other long term (current) drug therapy; Z88.6 Allergy status to analgesic agent
CPT/HCPCS: 81025; 96372; 99283; J1885

== ENCOUNTER 2019-09-06 23:23 | Emergency (ER) | payer MEDICAID ==
[~2019-09-06] VITALS: Ht 170.2 cm; Wt 71.7 kg
[2019-09-06 23:28] VITALS: BP 152/92
[2019-09-07] MEDS ORDERED: HYDROcodone/APAP 5/325 MG 1 TAB TAB PO STA (00:08)
[2019-09-07 03:10] VITALS: BP 140/82
== END 2019-09-07 03:10 | disposition home or self-care (01) ==
LOC: MED 23:23
DX: S80.01XA Contusion of right knee, initial encounter (principal); E11.9 Type 2 diabetes mellitus without complications; I10 Essential (primary) hypertension; Z88.6 Allergy status to analgesic agent; Z79.899 Other long term (current) drug therapy; X58.XXXA Exposure to other specified factors, initial encounter; Y93.89 Activity, other specified; Y92.89 Other specified places as the place of occurrence of the external cause; Y99.8 Other external cause status
CPT/HCPCS: 93971; 99284; Q0092

== ENCOUNTER 2019-09-25 14:20 | Emergency (ER) | payer MEDICAID ==
--- NOTE | 2019-09-25 14:49 | NUR ---
PATIENT LEFT WITHOUT BEING TRIAGED. NO FURTHER CARE PROVIDED FOR PATIENT.
== END 2019-09-25 14:48 | disposition left against medical advice (07) ==
LOC: MED 14:20
DX: R11.0 Nausea (principal); Z53.21 Procedure and treatment not carried out due to patient leaving prior to being seen by health care provider

== ENCOUNTER 2019-12-02 03:27 | Emergency (ER) | payer MEDICAID ==
[~2019-12-02] VITALS: Ht 172.7 cm; Wt 70.3 kg
[2019-12-02 03:31] VITALS: BP 147/92
[2019-12-02] MEDS ORDERED: KETOROLAC 30 MG/ML VIAL IM STA (04:26)
[2019-12-02] MEDS ORDERED: KETOROLAC 30 MG/ML VIAL ONE (04:27)
[2019-12-02 05:56] VITALS: BP 131/87
== END 2019-12-02 05:55 | disposition home or self-care (01) ==
LOC: MED 03:27
DX: S02.2XXA Fracture of nasal bones, initial encounter for closed fracture (principal); S09.93XA Unspecified injury of face, initial encounter; E11.9 Type 2 diabetes mellitus without complications; I10 Essential (primary) hypertension; F17.200 Nicotine dependence, unspecified, uncomplicated; Z88.6 Allergy status to analgesic agent; X58.XXXA Exposure to other specified factors, initial encounter; Y93.89 Activity, other specified; Y92.89 Other specified places as the place of occurrence of the external cause; Y99.8 Other external cause status
CPT/HCPCS: 70486; 90471; 90715; 96372; 99284; J1885

== ENCOUNTER 2020-08-10 00:04 | Emergency (ER) | payer MEDICAID ==
[~2020-08-10] VITALS: Ht 172.7 cm; Wt 70.3 kg
[2020-08-10 00:15] VITALS: BP 148/89
--- NOTE | 2020-08-10 00:30 | NUR ---
PT. IS A 49 Y/O FEMALE THAT CAME INTO ED WITH C/O OF HIGH BLOOD SUGAR. PT. STATES THAT SHE RAN OUT OF INSULIN 3 DAYS AGO AND STATES "I CHECKED MY BLOOD SUGAR TODAY AND IT READ HIGH" DENIES N/V/D; SKIN IS PINK/WARM/DRY; AAOX4 WITH EVEN AND STEADY GAIT; PT DENIES ANY FEVER, CP, SOB, OR COUGH AT THIS TIME; VSS; PATIENT POSITIONED FOR COMFORT; HOB ELEVATED; BEDRAILS UP X2; BED DOWN. ER MD MADE AWARE OF PT STATUS.
[2020-08-10] MEDS ORDERED: NACL 0.9% 2,000 ML IV ONE (00:35)
--- NOTE | 2020-08-10 00:40 | NUR ---
PATIENT AXO X 4. PATIENT CONTINOUSLY MOVING ARM WHILE TRYNG TO PLACE IV. PATIENT EXPLAINED THE IMPORTANCE OF STAYING STILL DURING PROCEDURE. IV PLACED IN L AC 20G. PATIENT BEGAN YELLING AND STATING, "I'M GOING TO MOVE MY ARM BACK IF YOU POKE ME AGAIN." PATIENT ALLOWED FOR PARTIAL LABS TO COLLECTED, BUT PATIENT REFUSED TO HAVE IV SITE CHECKED FOR PATENCY. PATIENT ALSO REFUSED 2000ML BOLUS. ERMD MADE AWARE.
--- NOTE | 2020-08-10 00:41 | NUR ---
PT. REFUSED TO BE PLACED ON EDUCATION MANAGERS, PT. STATES "I DON'T WANT TO BE POKED ANYMORE AND I JUST WANNA LEAVE ALREADY." EXPLAINED TO PT. ABOUT IMPORTANCE OF STAYING ON EDUCATION MANAGERS DUE TO INCREASED HR, AND BLOOD SUGAR LEVELS. PT. STILL REFUSED AND STATED, "I JUST WANT TO GO ALREADY." ERMD MADE AWARE AND WENT IN TO SEE PT.
--- NOTE | 2020-08-10 00:42 | NUR ---
ATTEMPTED TO PERFORM EKG AT BEDSIDE, PT REFUSED TEST.
[2020-08-10 00:46] LABS: BASOPHILS % (AUTO) 0.7 % (0.0-2.0); EOSINOPHILS # (AUTO) 0.1 K/uL (0-0.4); EOSINOPHILS % (AUTO) 1.4 % (0.0-4.0); HEMATOCRIT 45.9 % (36-48); HEMOGLOBIN 16.2 g/dL (12.0-16.0); LYMPHOCYTES # (AUTO) 1.9 K/uL (2.5-16.5); LYMPHOCYTES % (AUTO) 29.9 % (20.5-51.1); MEAN CORPUSCULAR HEMOGLOBIN 32 pg (27-31); MEAN CORPUSCULAR HGB CONC 35 g/dL (33-37); MEAN CORPUSCULAR VOLUME 90.3 fL (80-94); MONOCYTES # (AUTO) 0.7 K/uL (0.8-1.0); MONOCYTES % (AUTO) 10.6 % (1.7-9.3); NEUTROPHILS # (AUTO) 3.6 K/uL (1.8-7.7); NEUTROPHILS % (AUTO) 57.4 % (42.2-75.2); PLATELET COUNT (AUTO) 253 K/uL (140-450); RED BLOOD CELL COUNT(AUTO) 5.09 MIL/uL (4.20-5.40); RED CELL DISTRIBUTION WIDTH 13.1 % (11.6-13.7); WHITE BLOOD COUNT (AUTO) 6.3 K/uL (4.8-10.8)
--- NOTE | 2020-08-10 00:48 | NUR ---
ENE AT BEDSIDE AND EXPLANED THE IMPORTANCE OF STAYING AND RECIVING TREATMENT. PATIENT TOLD ENE, "I'M JUST GOING TO SEE MY DOCTOR IN THE MORNING." CARLD EXPLAINED THAT LEAVING THE HOSPITAL AT THIS TIME COULD POTENTIALY BECOME LIFE THREATENING. PATIENT STILL REFUSED TO STAY AND SIGNED AMA FORM.
--- NOTE | 2020-08-10 00:50 | NUR ---
IV removed, catheter intact and site benign. Applied folded 4x4 gauze and tape to stop bleeding.
[2020-08-10 00:51] VITALS: BP 148/89
--- NOTE | 2020-08-10 00:51 | NUR ---
Patient does not wish to proceed with medical care recommended by DR. OLMOS. Patient given information related to possible complications, up to and including , which could occur as a result of leaving hospital at this time. Patient verbalizes understanding of risks involved leaving against medical advice. Patient has signed AMA form.
[2020-08-10 01:03] LABS: ANION GAP 17.8 (8-16); CARBON DIOXIDE 21.1 mmol/L (21-32); CREATININE 0.7 mg/dL (0.6-1.3)
[2020-08-10 01:15] LABS: POTASSIUM 2.9 mmol/L (3.5-5.1)
== END 2020-08-10 00:51 | disposition left against medical advice (07) ==
LOC: MED 00:04
DX: E11.65 Type 2 diabetes mellitus with hyperglycemia (principal); R63.1 Polydipsia; R53.1 Weakness
CPT/HCPCS: 36415; 80048; 83036; 83735; 84484; 85025; 93005; 99284

== ENCOUNTER 2021-08-15 05:38 | Emergency (ER) | payer MEDICAID ==
[~2021-08-15] VITALS: Ht 172.7 cm; Wt 70.3 kg
[2021-08-15 05:46] VITALS: BP 153/69
--- NOTE | 2021-08-15 05:50 | NUR ---
PT AMBULATED TO BED #09
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
--- NOTE | 2021-08-15 06:37 | NUR ---
pt ambulatory to bathroom. steady gait.
--- NOTE | 2021-08-15 07:14 | NUR ---
Pt report given to AKIL Corbett. Transfer of care at this time.
--- NOTE | 2021-08-15 07:21 | NUR ---
pt wheelchair assist to xray at this time
[2021-08-15] MEDS ORDERED: ACET-10509 PO (08:05)
[2021-08-15] MEDS ORDERED: LID5T TP (08:05)
[2021-08-15] MEDS ORDERED: KETOROLAC 60 MG/2 ML VIAL IM ONE (08:05)
[2021-08-15] MEDS ORDERED: IBUP-2213 PO (08:05)
[2021-08-15 08:28] VITALS: BP 153/69
--- NOTE | 2021-08-15 08:28 | NUR ---
Patient discharged with v/s stable. Written and verbal after care instructions given and explained. Patient alert, oriented and verbalized understanding of instructions. Ambulatory with steady gait. All questions addressed prior to discharge. ID band removed. Patient advised to follow up with PMD. Rx of lidocaine patch, ibuprofen, tylenol (sent) given. Patient educated on indication of medication including possible reaction and side effects. Opportunity to ask questions provided and answered.
== END 2021-08-15 08:28 | disposition home or self-care (01) ==
LOC: MED 05:38
DX: R07.89 Other chest pain (principal); E11.9 Type 2 diabetes mellitus without complications; I10 Essential (primary) hypertension; Z88.1 Allergy status to other antibiotic agents; Z88.8 Allergy status to other drugs, medicaments and biological substances; Z79.899 Other long term (current) drug therapy; Z79.4 Long term (current) use of insulin
CPT/HCPCS: 71046; 96372; 99283; J1885

== ENCOUNTER 2021-08-17 04:24 | Emergency (ER) | payer OTHER, MEDICAID ==
[~2021-08-17] VITALS: Ht 172.7 cm; Wt 70.3 kg
[~2021-08-17 04:24] MED LIST changes: +ACET-10509 PO; +IBUP-2213 PO; +LID5T TP
[2021-08-17 04:25] VITALS: BP 150/80
--- NOTE | 2021-08-17 04:35 | NUR ---
SEEN AND EXAMINED BY ENE WITH ORDERS AND CARRIED OUT
--- NOTE | 2021-08-17 04:40 | NUR ---
medicated as per ERMDS order, tolerated well.
[2021-08-17] MEDS: KETOROLAC 30 MG/ML VIAL IM ONE (04:52)
[2021-08-17] MEDS: ASPIRIN 325 MG TAB PO ONE (04:53)
[2021-08-17] MEDS: NITROGLYCERIN 0.4 MG TAB SL ONE (04:57)
[2021-08-17 05:00] LABS: BASOPHILS # (AUTO) 0.2 K/uL (0.00-0.22); BASOPHILS % (AUTO) 3.2 % (0.0-2.0); EOSINOPHILS # (AUTO) 0.2 K/uL (0-0.4); EOSINOPHILS % (AUTO) 2.6 % (0.0-4.0); HEMATOCRIT 42.1 % (36-48); HEMOGLOBIN 14.2 g/dL (12.0-16.0); LYMPHOCYTES # (AUTO) 1.3 K/uL (2.5-16.5); LYMPHOCYTES % (AUTO) 21.8 % (20.5-51.1); MEAN CORPUSCULAR HEMOGLOBIN 30 pg (27-31); MEAN CORPUSCULAR HGB CONC 34 g/dL (33-37); MEAN CORPUSCULAR VOLUME 89.4 fL (80-94); MONOCYTES # (AUTO) 0.3 K/uL (0.8-1.0); MONOCYTES % (AUTO) 5.6 % (1.7-9.3); NEUTROPHILS % (AUTO) 66.8 % (42.2-75.2); PLATELET COUNT (AUTO) 205 K/uL (140-450); RED BLOOD CELL COUNT(AUTO) 4.71 MIL/uL (4.20-5.40)
[2021-08-17 05:12] LABS: ANION GAP 10.7 (8-16); CARBON DIOXIDE 27.2 mmol/L (21-32); CHLORIDE 101 mmol/L (98-107); CREATININE 0.8 mg/dL (0.6-1.3); GFR ARICAN-AMERICAN 98 mL/min (>90); POTASSIUM 3.9 mmol/L (3.5-5.1); SODIUM SERUM 135 mmol/L (136-145)
[2021-08-17 05:25] LABS: ALBUMIN 3.3 g/dL (3.4-5.0); ASPARTATE AMINOTRANSFERASE 15 U/L (15-37); TOTAL BILIRUBIN 0.4 mg/dL (0.0-1.0); UREA NITROGEN, BLOOD 12 mg/dL (7-18)
[2021-08-17 05:27] LABS: GLUCOSE 524 mg/dL (74-106)
[2021-08-17] MEDS ORDERED: MORPHINE SULFATE 2 MG/ML SYR ONE (07:04)
[2021-08-17] MEDS ORDERED: ONDANSETRON 4 MG/2 ML VIAL ONE (07:05)
[2021-08-17] MEDS: NACL 0.9% 1,000 ML IV ONE (07:05)
--- NOTE | 2021-08-17 07:05 | NUR ---
MEDICATED PER ERMDS ORDER, TOLERATED WELL
[2021-08-17] MEDS: MORPHINE SULFATE 4 MG/ML SYR IVP ONE (07:06)
[2021-08-17] MEDS: ONDANSETRON 4 MG/2 ML VIAL IVP ONE (07:19)
[2021-08-17] MEDS: INSULIN REGULAR, HUMAN 100 UNIT/ML VIAL SUBQ ONE (07:23)
[2021-08-17 08:07] VITALS: BP 125/75
--- NOTE | 2021-08-17 08:07 | NUR ---
IV removed, catheter intact and site benign. Applied folded 4x4 gauze and tape to stop bleeding.
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
== END 2021-08-17 08:07 | disposition home or self-care (01) ==
LOC: MED 04:24
DX: R07.89 Other chest pain (principal); I10 Essential (primary) hypertension; E11.9 Type 2 diabetes mellitus without complications; Z79.4 Long term (current) use of insulin; Z79.899 Other long term (current) drug therapy; Z79.1 Long term (current) use of non-steroidal anti-inflammatories (NSAID); Z88.8 Allergy status to other drugs, medicaments and biological substances; Z88.5 Allergy status to narcotic agent; V43.62XA Car passenger injured in collision with other type car in traffic accident, initial encounter; Y93.89 Activity, other specified; Y92.410 Unspecified street and highway as the place of occurrence of the external cause; Y99.8 Other external cause status
CPT/HCPCS: 36415; 71045; 80053; 84484; 85025; 93005; 96361; 96372; 96374; 96375; 99285; J1815; J1885; J2270; J2405; J7030

== ENCOUNTER 2022-01-21 02:12 | Emergency (ER) | payer MEDICAID, OTHER ==
[~2022-01-21] VITALS: Ht 172.7 cm; Wt 70.3 kg
[2022-01-21 02:14] VITALS: BP 143/79
--- NOTE | 2022-01-21 02:20 | NUR ---
TO LOBBY FOLLOWING TRIAGE AFTER OBTAINING UA
--- NOTE | 2022-01-21 03:06 | NUR ---
PT TO 7
[2022-01-21 03:28] VITALS: BP 145/81
--- NOTE | 2022-01-21 03:39 | NUR ---
URINE COLLECTED AND WALKED TO LAB
[2022-01-21 03:40] LABS: BILIRUBIN,URINE NEGATIVE (NEGATIVE); BLOOD, URINE NEGATIVE (NEGATIVE); COLOR,URINE YELLOW (YELLOW); LEUKOCYTE ESTERASE ,URINE 1+ (NEGATIVE); NITRITE, URINE NEGATIVE (NEGATIVE); UGLUCOSE 1+ (NEGATIVE)
[2022-01-21 03:41] LABS: APPEARANCE,URINE SLIGHTLY HAZY (CLEAR)
[2022-01-21 03:47] LABS: RBC,URINE 0-5 /HPF (0-5); WBC,URINE 20-60 /HPF (0-5)
[2022-01-21 03:48] LABS: YEAST,URINE Few /HPF (None Seen)
[2022-01-21] MEDS ORDERED: CEPH-588 PO (03:58)
[2022-01-21] MEDS ORDERED: FLUC150T78 PO (04:03)
--- NOTE | 2022-01-21 04:17 | NUR ---
Written and verbal after care instructions given and explained. Patient alert, oriented and verbalized understanding of instructions. Ambulatory with steady gait. All questions addressed prior to discharge. ID band removed. Patient advised to follow up with PMD. Rx of KEFLEX, AND FLUCONAZOLE given. Patient educated on indication of medication including possible reaction and side effects. Opportunity to ask questions provided and answered.
== END 2022-01-21 04:17 | disposition home or self-care (01) ==
LOC: MED 02:12
DX: N39.0 Urinary tract infection, site not specified (principal); E11.9 Type 2 diabetes mellitus without complications; I10 Essential (primary) hypertension; Z79.899 Other long term (current) drug therapy; Z79.2 Long term (current) use of antibiotics; Z79.1 Long term (current) use of non-steroidal anti-inflammatories (NSAID); Z79.4 Long term (current) use of insulin; Z88.8 Allergy status to other drugs, medicaments and biological substances; Z88.5 Allergy status to narcotic agent
CPT/HCPCS: 81001; 87086; 99283

== ENCOUNTER 2022-02-20 00:22 | Emergency (ER) | payer MEDICAID ==
[~2022-02-20] VITALS: Ht 170.2 cm; Wt 70.3 kg
[~2022-02-20 00:22] MED LIST changes: +CEPH-588 PO; +FLUC150T78 PO
[2022-02-20 00:50] VITALS: BP 121/57
--- NOTE | 2022-02-20 00:53 | NUR ---
TO LOBBY A/W BED AMBULATORY
--- NOTE | 2022-02-20 01:24 | NUR ---
PT TAKEN TO RADIOLOGY FROM ER
--- NOTE | 2022-02-20 01:31 | NUR ---
PT RETURN FROM RADIOLOGY TO ER LOBBY
--- NOTE | 2022-02-20 03:34 | NUR ---
PT TAKEN TO RADIOLOGY
[2022-02-20] MEDS ORDERED: ACET-10509 PO (04:03)
[2022-02-20] MEDS ORDERED: ACETAMINOPHEN 325 MG TAB PO ONE (04:05)
[2022-02-20] MEDS ORDERED: KETOROLAC 15 MG/ML VIAL IM ONE (04:05)
--- NOTE | 2022-02-20 04:20 | NUR ---
ALL RESULTS BACK AND NOTED BY ERMD AND FOR D/C
[2022-02-20 04:37] VITALS: BP 119/80
== END 2022-02-20 04:37 | disposition home or self-care (01) ==
LOC: MED 00:22
DX: S93.401A Sprain of unspecified ligament of right ankle, initial encounter (principal); W18.30XA Fall on same level, unspecified, initial encounter; Y93.89 Activity, other specified; Y92.89 Other specified places as the place of occurrence of the external cause; Y99.8 Other external cause status
CPT/HCPCS: 73610; 73630; 96372; 99284; J1885

== ENCOUNTER 2022-02-26 05:51 | Emergency (ER) | payer MEDICAID ==
[~2022-02-26] VITALS: Ht 170.2 cm; Wt 70.3 kg
[2022-02-26 05:57] VITALS: BP 140/89
--- NOTE | 2022-02-26 06:00 | NUR ---
TO LOBBY A/W BED VIA W/C
[2022-02-26 06:05] VITALS: BP 140/89
--- NOTE | 2022-02-26 06:30 | NUR ---
SEEN AND EXAMINED BY ENE
[2022-02-26] MEDS ORDERED: NAPR-54 PO (06:32)
[2022-02-26] MEDS ORDERED: SULF-59 PO (06:32)
[2022-02-26] MEDS ORDERED: KETOROLAC 15 MG/ML VIAL IM ONE (06:35)
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
== END 2022-02-26 07:20 | disposition home or self-care (01) ==
LOC: MED 05:51
DX: S93.401A Sprain of unspecified ligament of right ankle, initial encounter (principal); L03.114 Cellulitis of left upper limb; I10 Essential (primary) hypertension; E11.9 Type 2 diabetes mellitus without complications; Z88.8 Allergy status to other drugs, medicaments and biological substances; Z79.4 Long term (current) use of insulin; Z79.899 Other long term (current) drug therapy; X58.XXXA Exposure to other specified factors, initial encounter; Y93.89 Activity, other specified; Y92.89 Other specified places as the place of occurrence of the external cause; Y99.8 Other external cause status
CPT/HCPCS: 96372; 99283; J1885

== ENCOUNTER 2022-03-15 23:59 | Inpatient (IN) | payer MEDICAID ==
[~2022-03-15] VITALS: Ht 170.2 cm; Wt 70.3 kg
[~2022-03-15 23:59] MED LIST changes: +NAPR-54 PO; +SULF-59 PO
[2022-03-16] VITALS (7 sets, daily range): BP systolic 92–136; BP diastolic 55–75
--- NOTE | 2022-03-16 00:10 | NUR ---
PT TO BED 7
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
--- NOTE | 2022-03-16 00:30 | NUR ---
EKG DONE AND HANDED TO DR FRYE. 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 HOB ELEVATED BED AT LOWEST POSITION SIDE RAILS UPX1
[2022-03-16] MEDS ORDERED: ASPIRIN 325 MG TAB PO ONE (00:40)
--- NOTE | 2022-03-16 00:45 | NUR ---
PT STATED HER CHEST PAIN HAS BEEN INTERMITTENT X3 DAYS. UPON ASSESSMENT PT DENIES ANY CHEST PAIN AND PAIN THROUGHOUT BODY. PAIN IS AT A 0/10. PT STATED SHE HAS HAD INTERMITTENT NV X2WKS.
[2022-03-16 00:52] LABS: BASOPHILS % (AUTO) 0.7 % (0.0-2.0); EOSINOPHILS # (AUTO) 0.1 K/uL (0-0.4); EOSINOPHILS % (AUTO) 2.1 % (0.0-4.0); HEMATOCRIT 41.8 % (36-48); HEMOGLOBIN 14.1 g/dL (12.0-16.0); LYMPHOCYTES # (AUTO) 1.9 K/uL (2.5-16.5); LYMPHOCYTES % (AUTO) 29.9 % (20.5-51.1); MEAN CORPUSCULAR HEMOGLOBIN 30 pg (27-31); MEAN CORPUSCULAR HGB CONC 34 g/dL (33-37); MEAN CORPUSCULAR VOLUME 88.2 fL (80-94); MONOCYTES # (AUTO) 0.5 K/uL (0.8-1.0); MONOCYTES % (AUTO) 7.1 % (1.7-9.3); NEUTROPHILS # (AUTO) 3.8 K/uL (1.8-7.7); NEUTROPHILS % (AUTO) 60.2 % (42.2-75.2); PLATELET COUNT (AUTO) 241 K/uL (140-450); RED BLOOD CELL COUNT(AUTO) 4.73 MIL/uL (4.20-5.40); RED CELL DISTRIBUTION WIDTH 13.3 % (11.6-13.7); WHITE BLOOD COUNT (AUTO) 6.3 K/uL (4.8-10.8)
[2022-03-16 01:09] LABS: ALBUMIN 3.6 g/dL (3.4-5.0); ANION GAP 8.8 (8-16); ASPARTATE AMINOTRANSFERASE 16 U/L (15-37); CARBON DIOXIDE 29.9 mmol/L (21-32); CHLORIDE 99 mmol/L (98-107); CREATININE 0.7 mg/dL (0.6-1.3); GFR ARICAN-AMERICAN 113 mL/min (>90); GLUCOSE 184 mg/dL (74-106); LIPASE 76 U/L (73-393); POTASSIUM 3.7 mmol/L (3.5-5.1); SODIUM SERUM 134 mmol/L (136-145); TOTAL BILIRUBIN 0.4 mg/dL (0.0-1.0); UREA NITROGEN, BLOOD 15 mg/dL (7-18)
--- NOTE | 2022-03-16 01:13 | NUR ---
DR. FRYE AT BEDSIDE
[2022-03-16] MEDS ORDERED: HEPARIN PER PHARMACY MC STA (01:21)
[2022-03-16] MEDS ORDERED: hePARIN / DEXT 5% PREMIX 250 ML IV ONE (01:25)
[2022-03-16] MEDS ORDERED: ONDANSETRON 4 MG/2 ML VIAL IVP PRN (01:30)
[2022-03-16] MEDS ORDERED: NITROGLYCERIN 0.4 MG TAB SL PRN (01:30)
[2022-03-16] MEDS ORDERED: MORPHINE SULFATE 2 MG/ML SYR IVP PRN (01:30)
[2022-03-16] MEDS ORDERED: LORazepam 2 MG/ML VIAL IVP PRN (01:30)
[2022-03-16] MEDS ORDERED: ACETAMINOPHEN 325 MG TAB PO PRN (01:30)
[2022-03-16] MEDS ORDERED: HYDROcodone/APAP 5/325 MG 1 TAB TAB PO PRN (01:30)
--- NOTE | 2022-03-16 01:37 | NUR ---
COVID SWAB COLLECTED AND SENT TO LAB
[2022-03-16] MEDS ORDERED: LOVENOX 1MG/KG Q12H SUBQ SCH (01:40)
[2022-03-16 01:50] LABS: PROTHROMBIN TIME 9.2 secs (10.8-13.4)
[2022-03-16] MEDS ORDERED: ENOXAPARIN 80 MG/0.8 ML SYR SUBQ SCH (02:30)
--- NOTE | 2022-03-16 02:45 | NUR ---
PT UNABLE TO GIVE URINE AT THIS TIME. DR. FRYE NOTIFIED.
--- NOTE | 2022-03-16 02:55 | NUR ---
Chart checked and completed.
--- NOTE | 2022-03-16 02:55 | NUR ---
Patient will be admitted to care of DR. JONES. Admited to TELE. Will go to room 126B. Belongings list completed. Report to KATALINA HAZEL.
--- NOTE | 2022-03-16 03:00 | NUR ---
RECEIVED PATIENT AND REPORT FROM ER DEPT. FOR CONTINUITY OF CARE. PATIENT IS AWAKE, STABLE, A&O X4. ORIGINAL COMPLAINT OF CHEST PAIN UPON ADMISSION TO ER, BUT HAS SINCE REPORTED NO PAIN. CURRENTLY ON ROOM AIR WITH NO SIGNS OF ACUTE DISTRESS NOTED. IV SITE LOCATED AT THE RIGHT AC, 20 GAUGE, SALINE LOCK, INTACT AND PATENT. ORIENTED PATIENT TO ROOM, BATHROOM, BED CONTROLS, AND CALL LIGHT. BED TO LOWEST POINT, SAFETY MEASURES IN PLACE, CALL LIGHT WITHIN REACH, WILL CONTINUE TO MONITOR.
--- NOTE | 2022-03-16 03:24 | NUR ---
PAGED REGARDING HEPARIN DRIP.ORDERED TO DC HEPARIN DRIP AND PT WILL GET LOVENOX SQ BID.
[2022-03-16] MEDS: ASPIRIN 81 MG TAB.CHEW PO SCH ×2 (05:49→09:29)
--- NOTE | 2022-03-16 07:09 | NUR ---
receiev the rn form the shift foreman rn aox4 admitting diagnosis of NSTEMI .on lovenox . will continue to monitor
[2022-03-16] MEDS ORDERED: DEXTROSE 50% 50 ML SYR IVP PRN (08:10)
[2022-03-16] MEDS ORDERED: lisinopriL 10 MG TAB PO SCH (09:00)
[2022-03-16] MEDS ORDERED: lisinopriL 5 MG TAB PO SCH (09:00)
--- NOTE | 2022-03-16 09:13 | NUR ---
PATIENT HAS BEEN SCREENED AND CATEGORIZED MODERATE NUTRITION RISK. PATIENT WILL BE SEEN WITHIN 3-5 DAYS OF ADMISSION. REVIEWED BY KHALIDA BARRERA RD
[2022-03-16] MEDS: METOPROLOL 25 MG TAB PO SCH ×2 (09:29→20:53)
[2022-03-16] MEDS: ENOXAPARIN 80 MG/0.8 ML SYR SUBQ SCH ×2 (09:32→20:53)
--- NOTE | 2022-03-16 11:30 | NUR ---
md frank instrument mechanic discussed with patient for transfer to higher level of care for angiogram . further teaching was done with anthony
[2022-03-16] MEDS: INSULIN LISPRO SLIDING SCALE 100 UNITS/ML VIAL SUBQ PRN ×3 (13:10→20:43)
[2022-03-16] MEDS: BLOOD GLUCOSE MONITORING 1 DEV DEV FS SCH ×3 (13:11→20:34)
--- NOTE | 2022-03-16 14:30 | NUR ---
the diet was change to CCHO diet
--- NOTE | 2022-03-16 16:46 | NUR ---
rolando from [facility] confirmed the patient has covid negative results for transfer
--- NOTE | 2022-03-16 18:47 | NUR ---
will endorse to [employer] shift lead rn for continuity of care ./ for [facility] tomorrow at [facility] , [facility] midnight . [facility]
--- NOTE | 2022-03-16 19:37 | NUR ---
RECEIVED ENDORSEMENT FROM DAY SHIFT NURSE FOR CONTINUITY OF CARE. PATIENT IS AWAKE, STABLE, A&O X4. NO PAIN PRESENT AT THIS TIME. CURRENTLY ON ROOM AIR WITH NO SIGNS OF ACUTE DISTRESS NOTED. IV SITE LOCATED AT THE RIGHT AC, 20 GAUGE, SALINE LOCK, INTACT AND PATENT. PATIENT TO BE NPO AFTER MIDNIGHT. BED TO LOWEST POINT, SAFETY MEASURES IN PLACE, CALL LIGHT WITHIN REACH, WILL CONTINUE TO MONITOR.
--- NOTE | 2022-03-16 20:40 | NUR ---
BLOOD GLUCOSE CHECK OF 158, TWO UNITS OF INSULIN WAS ADMINISTERED. LOVENOX WAS HELD DUE TO PATIENT UNDERGOING PLACEMENT OF CARDIAC CATHETER THE FOLLOWING MORNING.
[2022-03-16] MEDS ORDERED: SIMVASTATIN 20 MG TAB PO SCH (21:00)
[2022-03-17] VITALS: BP 100/66
--- NOTE | 2022-03-17 00:25 | NUR ---
CALLED [facility], SPOKE TO JEROD NURSE NEON SIGN INSTALLER AND FOLLOWED UP REGARDING PATIENT'S TRANSFER. JEROD SAID PATIENT IS GOING STRAIGHT TO CATEGORY DIRECTOR AND SHE WILL FOLLOW UP WITH MANAGER [facility] REGARDING TRANSPORTATION.
--- NOTE | 2022-03-17 02:52 | NUR ---
RECEIVED A CALL FROM [facility], SPOKE TO JEROD NURSE TIRE SPECIALIST. CONFIRMED PATIENT MANAGER UTILITY AT 6AM.
[2022-03-17 04:00] VITALS: BP 108/67
[2022-03-17 05:53] LABS: BASOPHILS % (AUTO) 0.5 % (0.0-2.0); EOSINOPHILS # (AUTO) 0.1 K/uL (0-0.4); EOSINOPHILS % (AUTO) 2.1 % (0.0-4.0); HEMATOCRIT 41.4 % (36-48); LYMPHOCYTES # (AUTO) 1.9 K/uL (2.5-16.5); LYMPHOCYTES % (AUTO) 34.1 % (20.5-51.1); MEAN CORPUSCULAR HEMOGLOBIN 30 pg (27-31); MEAN CORPUSCULAR HGB CONC 34 g/dL (33-37); MEAN CORPUSCULAR VOLUME 88.7 fL (80-94); MONOCYTES # (AUTO) 0.6 K/uL (0.8-1.0); MONOCYTES % (AUTO) 9.9 % (1.7-9.3); NEUTROPHILS % (AUTO) 53.4 % (42.2-75.2); PLATELET COUNT (AUTO) 230 K/uL (140-450); RED BLOOD CELL COUNT(AUTO) 4.67 MIL/uL (4.20-5.40); RED CELL DISTRIBUTION WIDTH 13.5 % (11.6-13.7); WHITE BLOOD COUNT (AUTO) 5.7 K/uL (4.8-10.8)
[2022-03-17 05:57] LABS: ALBUMIN 3.2 g/dL (3.4-5.0); ANION GAP 9.3 (8-16); CARBON DIOXIDE 31.9 mmol/L (21-32); CREATININE 0.6 mg/dL (0.6-1.3); MAGNESIUM 1.7 mg/dL (1.8-2.4); POTASSIUM 4.2 mmol/L (3.5-5.1); TOTAL BILIRUBIN 0.7 mg/dL (0.0-1.0)
--- NOTE | 2022-03-17 06:00 | NUR ---
FOLLOWED UP WITH [facility] REGARDING PATIENT'S TRANSPORTATION. 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
--- NOTE | 2022-03-17 07:03 | NUR ---
SPOKE TO NEIDA FROM [facility] REGARDING PATIENT'S TRANSFER. SHE SAID THEY WILL CALL BACK.
[2022-03-17] MEDS: BLOOD GLUCOSE MONITORING 1 DEV DEV FS SCH (07:23)
--- NOTE | 2022-03-17 07:24 | NUR ---
CALLED [facility] REGARDING PATIENT'S TRANSPORT. ETA IN 15MINS.
[2022-03-17] MEDS ORDERED: ATORVASTATIN 80 MG TAB PO SCH (09:00)
== END 2022-03-17 08:24 | disposition home or self-care (01) | DRG 190 ==
LOC: MED 23:59 → MMU 03-16 01:36
PROVIDERS: ADMIT Internal Medicine; ATTEND Internal Medicine
DX: I21.4 Non-ST elevation (NSTEMI) myocardial infarction (principal); E11.9 Type 2 diabetes mellitus without complications; E78.5 Hyperlipidemia, unspecified; I10 Essential (primary) hypertension; Z20.822 Contact with and (suspected) exposure to COVID-19; F17.210 Nicotine dependence, cigarettes, uncomplicated; Z79.4 Long term (current) use of insulin; Z79.899 Other long term (current) drug therapy; Z90.49 Acquired absence of other specified parts of digestive tract
CPT/HCPCS: 36415; 71045; 80053; 82948; 83036; 83690; 83735; 83880; 84484; 85025; 85610; 85730; 87081; 93005; 96374; 99291; J1644; J1650; J2270; Q0092

== ENCOUNTER 2022-05-24 02:44 | Emergency (ER) | payer MEDICAID ==
[~2022-05-24] VITALS: Ht 170.2 cm; Wt 72.6 kg
[2022-05-24 02:48] VITALS: BP 137/79
--- NOTE | 2022-05-24 03:20 | NUR ---
PT TAKEN TO RADIOLOGY
--- NOTE | 2022-05-24 04:45 | NUR ---
PT TAKEN TO BED 11
--- NOTE | 2022-05-24 05:00 | NUR ---
51 y/o F, c/o left shoulder pain associated with cough x 1 week. Pt was seen at [facility] yesterday and was told she had fluid buildup around her lungs, POC was to admit; however pt left AMA and decided to come here. PMHx: HTN, DM, HLD, Quadruple Bypass (2 months ago)
[2022-05-24 05:15] LABS: BASOPHILS % (AUTO) 0.9 % (0.0-2.0); EOSINOPHILS # (AUTO) 0.4 K/uL (0-0.4); EOSINOPHILS % (AUTO) 7.3 % (0.0-4.0); HEMATOCRIT 40.5 % (36-48); HEMOGLOBIN 13.1 g/dL (12.0-16.0); LYMPHOCYTES # (AUTO) 1.1 K/uL (2.5-16.5); LYMPHOCYTES % (AUTO) 22.2 % (20.5-51.1); MEAN CORPUSCULAR HEMOGLOBIN 27 pg (27-31); MEAN CORPUSCULAR HGB CONC 33 g/dL (33-37); MEAN CORPUSCULAR VOLUME 83.9 fL (80-94); MONOCYTES # (AUTO) 0.4 K/uL (0.8-1.0); MONOCYTES % (AUTO) 8.7 % (1.7-9.3); NEUTROPHILS # (AUTO) 2.9 K/uL (1.8-7.7); NEUTROPHILS % (AUTO) 60.9 % (42.2-75.2); PLATELET COUNT (AUTO) 266 K/uL (140-450); RED BLOOD CELL COUNT(AUTO) 4.82 MIL/uL (4.20-5.40); RED CELL DISTRIBUTION WIDTH 14.1 % (11.6-13.7); WHITE BLOOD COUNT (AUTO) 4.8 K/uL (4.8-10.8)
[2022-05-24 05:27] LABS: ALBUMIN 3.5 g/dL (3.4-5.0); ANION GAP 10.5 (8-16); CARBON DIOXIDE 30.8 mmol/L (21-32); CREATININE 0.9 mg/dL (0.6-1.3); POTASSIUM 4.3 mmol/L (3.5-5.1); TOTAL BILIRUBIN 0.5 mg/dL (0.0-1.0)
--- NOTE | 2022-05-24 05:34 | NUR ---
Dr. Leach examining patient.
[2022-05-24] MEDS: MORPHINE SULFATE 4 MG/ML SYR IVP ONE (05:50)
[2022-05-24] MEDS ORDERED: ROBAC PO (06:26)
[2022-05-24] MEDS ORDERED: AZIT250T3 PO (06:26)
--- NOTE | 2022-05-24 07:02 | NUR ---
Patient discharged with v/s stable. Written and verbal after care instructions given and explained. Patient alert, oriented and verbalized understanding of instructions. All questions addressed prior to discharge. ID band removed. Patient advised to follow up with PMD. Rx of Zithromax and Guaifenesin-Codein syrup sent to preferred pharmacy. Patient educated on indication of medication including possible reaction and side effects. Opportunity to ask questions provided and answered.
[2022-05-24 07:04] VITALS: BP 129/72
== END 2022-05-24 07:02 | disposition home or self-care (01) ==
LOC: MED 02:44
DX: J18.9 Pneumonia, unspecified organism (principal); J90 Pleural effusion, not elsewhere classified; I11.0 Hypertensive heart disease with heart failure; I50.9 Heart failure, unspecified; E11.9 Type 2 diabetes mellitus without complications; Z95.1 Presence of aortocoronary bypass graft; Z79.899 Other long term (current) drug therapy; Z79.2 Long term (current) use of antibiotics; Z79.1 Long term (current) use of non-steroidal anti-inflammatories (NSAID); Z79.4 Long term (current) use of insulin; Z88.8 Allergy status to other drugs, medicaments and biological substances; Z88.5 Allergy status to narcotic agent
CPT/HCPCS: 36415; 71045; 80053; 83880; 84484; 85025; 93005; 96374; 99285; J2270

== ENCOUNTER 2022-06-03 02:52 | Inpatient (IN) | payer MEDICAID ==
[~2022-06-03] VITALS: Ht 170.2 cm; Wt 72.6 kg
[~2022-06-03 02:52] MED LIST changes: +AZIT250T3 PO; +ROBAC PO
[2022-06-03 02:55] VITALS: BP 141/105
--- NOTE | 2022-06-03 03:05 | NUR ---
DR WYMAN AT [facility] EXAMINING PT
--- NOTE | 2022-06-03 03:07 | NUR ---
Patient taken to bed 2.
[2022-06-03] MEDS ORDERED: BENZONATATE 100 MG CAPLF PO STA (03:10)
--- NOTE | 2022-06-03 03:10 | NUR ---
C/O cough, and SOB x 2 weeks. Patient reported, had cough with SOB for 2 weeks, left chest and left arm pain. Patient came to ER on 05/24/22 for same symptoms. PMHx: HTN, DM, HLD, Quadruple Bypass (2 months ago)
[2022-06-03] MEDS ORDERED: KETOROLAC 30 MG/ML VIAL IM ONE (03:15)
[2022-06-03 03:25] LABS: BASOPHILS # (AUTO) 0.1 K/uL (0.00-0.22); BASOPHILS % (AUTO) 0.8 % (0.0-2.0); EOSINOPHILS # (AUTO) 0.2 K/uL (0-0.4); HEMATOCRIT 38.5 % (36-48); HEMOGLOBIN 12.6 g/dL (12.0-16.0); LYMPHOCYTES # (AUTO) 1.3 K/uL (2.5-16.5); LYMPHOCYTES % (AUTO) 21.7 % (20.5-51.1); MEAN CORPUSCULAR HEMOGLOBIN 27 pg (27-31); MEAN CORPUSCULAR HGB CONC 33 g/dL (33-37); MEAN CORPUSCULAR VOLUME 82.5 fL (80-94); MONOCYTES # (AUTO) 0.6 K/uL (0.8-1.0); MONOCYTES % (AUTO) 9.5 % (1.7-9.3); PLATELET COUNT (AUTO) 303 K/uL (140-450); RED BLOOD CELL COUNT(AUTO) 4.67 MIL/uL (4.20-5.40); RED CELL DISTRIBUTION WIDTH 14.8 % (11.6-13.7); WHITE BLOOD COUNT (AUTO) 6.2 K/uL (4.8-10.8)
[2022-06-03 03:52] LABS: ALBUMIN 3.3 g/dL (3.4-5.0); ANION GAP 9.5 (8-16); CARBON DIOXIDE 32.9 mmol/L (21-32); CREATININE 0.7 mg/dL (0.6-1.3); POTASSIUM 3.4 mmol/L (3.5-5.1); TOTAL BILIRUBIN 0.5 mg/dL (0.0-1.0)
[2022-06-03 03:57] LABS: PROTHROMBIN TIME 10.3 secs (10.8-13.4)
[2022-06-03] MEDS ORDERED: PROMETH/CODEINE 6.25-10MG/5ML 5 ML UDC PO ONE (04:10)
[2022-06-03] MEDS ORDERED: PROMETH/CODEINE 6.25-10MG/5ML 5 ML UDC ONE (04:11)
--- NOTE | 2022-06-03 04:43 | NUR ---
TO CT VIA [facility]
--- NOTE | 2022-06-03 06:00 | NUR ---
Pt to be transfered to [facility]
[2022-06-03] MEDS ORDERED: CLOP-68 PO (06:15)
[2022-06-03] MEDS ORDERED: INSU10SU6 SUBQ (06:19)
--- NOTE | 2022-06-03 07:46 | NUR ---
Patient sleeping, NAD, oriented times 4, denies any pain, nsr on cm, o2 sat 97% ra, lungs ctab, sl patent rac, sr up times 2, awaits admission. ambulated to restroom, steady gait.
[2022-06-03] MEDS ORDERED: ONDANSETRON 4 MG/2 ML VIAL IVP PRN (08:25)
[2022-06-03] MEDS ORDERED: HYDROcodone/APAP 5/325 MG 1 TAB TAB PO PRN (08:25)
[2022-06-03] MEDS ORDERED: ACETAMINOPHEN 325 MG TAB PO PRN (08:25)
--- NOTE | 2022-06-03 09:05 | NUR ---
ADMITTED FROM ER [facility]IA [facility]. A & O X4. SPEECH CLEAR. NO C/O PAIN. SKIN WARM, DRY, AND INTACT. IV ACCESS ON RIGHT AC GAUGE #20 INTACT. EXPLAINED DIAGNOSIS, PLAN OF CARE, PAIN MANAGEMENT TEACHING, USE OF CALL LIGHT/BED/TV/BATHROOM. VERBALIZED UNDERSTANDING. ADMISSION PROCESS INITIATED. KEEP COMFORTABLE ON BED. CALL LIGHT WITHIN REACH.
--- NOTE | 2022-06-03 09:10 | NUR ---
pt moved to 106A, no incidents, report given to ILIR Matias no pain or sob at transfer time
[2022-06-03 09:15] VITALS: BP 144/74
[2022-06-03] MEDS ORDERED: INSULIN LISPRO SLIDING SCALE 100 UNITS/ML VIAL SUBQ PRN (09:45)
--- NOTE | 2022-06-03 10:21 | NUR ---
PAGED DR. KAUFMAN REGARDING K 3.4. INFORMED RESOURCE NURSE ADAMARIS -RN.
--- NOTE | 2022-06-03 10:40 | NUR ---
WENT TO BATHROOM WITHOUT ASSISTANCE. TOLERATED WELL. NO C/O PAIN. NO SOB, NOTED.
[2022-06-03] MEDS: BLOOD GLUCOSE MONITORING 1 DEV DEV FS SCH ×2 (11:18→16:38)
[2022-06-03 12:00] VITALS: BP 149/73
[2022-06-03] MEDS ORDERED: POTASSIUM CHLORIDE 10 MEQ TABER PO PRN (15:30)
[2022-06-03 16:00] VITALS: BP 135/86
[2022-06-03] MEDS ORDERED: BENZONATATE 100 MG CAPLF PO PRN (16:55)
[2022-06-03] MEDS ORDERED: PROMETHAZINE DM 6.25/15MG-5ML ORASYR PO PRN (17:10)
--- NOTE | 2022-06-03 18:40 | NUR ---
PAGED DR. KAUFMAN REGARDING PT. WANTED TO GO AMA. INFORMED RESOURCE NURSE ADAMARIS -RN.
== END 2022-06-03 18:50 | disposition left against medical advice (07) | DRG 143 ==
LOC: MED 02:52 → MMU 08:27 → MTU 09:20
PROVIDERS: ADMIT Internal Medicine; ATTEND Internal Medicine
DX: J95.89 Other postprocedural complications and disorders of respiratory system, not elsewhere classified (principal); J91.8 Pleural effusion in other conditions classified elsewhere; E78.5 Hyperlipidemia, unspecified; I10 Essential (primary) hypertension; Z20.822 Contact with and (suspected) exposure to COVID-19; I25.10 Atherosclerotic heart disease of native coronary artery without angina pectoris; Z53.29 Procedure and treatment not carried out because of patient's decision for other reasons; E11.9 Type 2 diabetes mellitus without complications; Z95.1 Presence of aortocoronary bypass graft; Z79.899 Other long term (current) drug therapy; Z88.8 Allergy status to other drugs, medicaments and biological substances; Z87.891 Personal history of nicotine dependence; Z79.4 Long term (current) use of insulin; Z79.1 Long term (current) use of non-steroidal anti-inflammatories (NSAID)
CPT/HCPCS: 36415; 71045; 71250; 76604; 80053; 83880; 84484; 85025; 85610; 85730; 87081; 93005; 96372; 99285; J1885; Q0092

== ENCOUNTER 2022-09-05 01:25 | Emergency (ER) | payer MEDICAID ==
[~2022-09-05] VITALS: Ht 170.2 cm; Wt 70.3 kg
[~2022-09-05 01:25] MED LIST changes: +CLOP-68 PO; +INSU10SU6 SUBQ
[2022-09-05 01:40] VITALS: BP 150/83; PULSE 101; RESP 17; TEMP 98; O2SAT 97
--- NOTE | 2022-09-05 01:40 | NUR ---
to lobby a/w bed ambulatory
[2022-09-05] MEDS ORDERED: NACL 0.9% 1,000 ML IV SCH (02:05)
[2022-09-05] MEDS ORDERED: SULFAMETH/TRIMETH DS 800/160MG 1 TAB PO ONE (02:10)
[2022-09-05] MEDS ORDERED: ACETAMINOPHEN EXTRA STRENGTH 500 MG TAB PO ONE (02:10)
--- NOTE | 2022-09-05 02:30 | NUR ---
c/o lower abdominal pain, vaginal bleeding, headache x 2 days. per pt, pmhx: diabetes, hypertension, CABG. allergy to cyclobenzaprine, and meperidine.
--- NOTE | 2022-09-05 02:38 | NUR ---
Pt refused blood draw and IV stating 'I don't want to give blood'. Attempted to collect urine, per pt 'I just peed and I am not going to pee anymore'. ER Dr. Wilkinson was made aware.
--- NOTE | 2022-09-05 02:40 | NUR ---
Ultrasound by bedside at this time
[2022-09-05] MEDS ORDERED: SULF-59 PO (03:33)
--- NOTE | 2022-09-05 03:39 | NUR ---
Patient discharged with v/s stable. Written and verbal after care instructions given and explained. New rx bactrim. Patient verbalized understanding. Carried with steady gait. All questions addressed prior to discharge. Advised to follow up with PMD.
[2022-09-05 03:40] VITALS: BP 150/83; PULSE 101; RESP 17; TEMP 98; O2SAT 97
== END 2022-09-05 03:35 | disposition home or self-care (01) ==
LOC: MED 01:25
DX: N93.9 Abnormal uterine and vaginal bleeding, unspecified (principal); L03.213 Periorbital cellulitis; L02.01 Cutaneous abscess of face; E11.9 Type 2 diabetes mellitus without complications; I10 Essential (primary) hypertension; E78.00 Pure hypercholesterolemia, unspecified; Z95.1 Presence of aortocoronary bypass graft; Z79.899 Other long term (current) drug therapy; Z79.2 Long term (current) use of antibiotics; Z79.1 Long term (current) use of non-steroidal anti-inflammatories (NSAID); Z79.01 Long term (current) use of anticoagulants; Z79.4 Long term (current) use of insulin; Z88.8 Allergy status to other drugs, medicaments and biological substances
CPT/HCPCS: 76856; 93976; 99284; Q0092

== ENCOUNTER 2022-12-06 21:16 | Emergency (ER) | payer MEDICAID | END 2022-12-06 22:10 | disposition left against medical advice (07) | LOC: MED 21:16 | DX: R25.2 Cramp and spasm (principal); Z53.21 Procedure and treatment not carried out due to patient leaving prior to being seen by health care provider ==

== ENCOUNTER 2023-01-02 06:15 | Emergency (ER) | payer MEDICAID ==
[~2023-01-02] VITALS: Ht 167.6 cm; Wt 70.3 kg
[2023-01-02 06:19] VITALS: BP 161/94; PULSE 96; RESP 16; TEMP 97.9; O2SAT 98
[2023-01-02] MEDS ORDERED: ALUMINUM HYD/MAG/SIMETHICONE 30 ML UDC PO ONE (07:10)
[2023-01-02 07:44] LABS: BASOPHILS % (AUTO) 0.4 % (0.0-2.0); EOSINOPHILS # (AUTO) 0.1 K/uL (0-0.4); EOSINOPHILS % (AUTO) 2.2 % (0.0-4.0); HEMATOCRIT 42.3 % (36-48); HEMOGLOBIN 14.3 g/dL (12.0-16.0); LYMPHOCYTES # (AUTO) 1.8 K/uL (2.5-16.5); LYMPHOCYTES % (AUTO) 26.3 % (20.5-51.1); MEAN CORPUSCULAR HEMOGLOBIN 30 pg (27-31); MEAN CORPUSCULAR HGB CONC 34 g/dL (33-37); MEAN CORPUSCULAR VOLUME 88.1 fL (80-94); MONOCYTES # (AUTO) 0.6 K/uL (0.8-1.0); MONOCYTES % (AUTO) 8.6 % (1.7-9.3); NEUTROPHILS # (AUTO) 4.3 K/uL (1.8-7.7); NEUTROPHILS % (AUTO) 62.5 % (42.2-75.2); PLATELET COUNT (AUTO) 198 K/uL (140-450); RED BLOOD CELL COUNT(AUTO) 4.81 MIL/uL (4.20-5.40); RED CELL DISTRIBUTION WIDTH 12.9 % (11.6-13.7); WHITE BLOOD COUNT (AUTO) 6.8 K/uL (4.8-10.8)
[2023-01-02 08:04] LABS: ANION GAP 12.8 (8-16); CALCIUM 9.1 mg/dL (8.5-10.1); CARBON DIOXIDE 29.2 mmol/L (21-32); CHLORIDE 97 mmol/L (98-107); CREATININE 0.8 mg/dL (0.6-1.3); GFR ARICAN-AMERICAN 97 mL/min (>90); GFR NON ARICAN-AMERICAN 80 mL/min (>90); SODIUM SERUM 135 mmol/L (136-145); UREA NITROGEN, BLOOD 16 mg/dL (7-18)
[2023-01-02 08:07] LABS: FLU A ANTIGEN negative (NEGATIVE); FLU B ANTIGEN negative (NEGATIVE)
[2023-01-02 08:08] LABS: GLUCOSE 460 mg/dL (74-106)
[2023-01-02 08:10] LABS: ALANINE AMINOTRANSFERASE 33 U/L (12-78); ALBUMIN 3.8 g/dL (3.4-5.0); ALKALINE PHOSPHATASE 320 U/L (50-136); ASPARTATE AMINOTRANSFERASE 11 U/L (15-37); TOTAL BILIRUBIN 0.7 mg/dL (0.0-1.0); TOTAL PROTEIN, SERUM 7.7 g/dL (6.4-8.2)
[2023-01-02] MEDS ORDERED: NACL 0.9% 1,000 ML IV ONE (08:15)
[2023-01-02] MEDS ORDERED: INSULIN REGULAR, HUMAN 100 UNIT/ML VIAL SUBQ ONE (08:15)
[2023-01-02] MEDS ORDERED: ACET-10509 PO (09:05)
[2023-01-02] MEDS ORDERED: [UNRECOGNIZED DRUG - CODE] PO (09:05)
[2023-01-02] MEDS ORDERED: AMOX1TAB8 PO (09:05)
[2023-01-02 10:04] VITALS: BP 147/84; PULSE 92; RESP 16; TEMP 97.1; O2SAT 100
[2023-01-02] MEDS ORDERED: DICL100G32 TP (10:06)
[2023-01-02] MEDS ORDERED: TRAM50TA3 PO (10:06)
== END 2023-01-02 10:06 | disposition home or self-care (01) ==
LOC: MED 06:15
DX: J20.9 Acute bronchitis, unspecified (principal); Z20.822 Contact with and (suspected) exposure to COVID-19; H60.11 Cellulitis of right external ear; E11.65 Type 2 diabetes mellitus with hyperglycemia; I11.9 Hypertensive heart disease without heart failure; Z79.4 Long term (current) use of insulin; Z88.8 Allergy status to other drugs, medicaments and biological substances; Z79.899 Other long term (current) drug therapy
CPT/HCPCS: 36415; 71045; 80053; 82948; 84484; 85025; 87426; 87804; 93005; 96360; 96372; 99285; J1815

== ENCOUNTER 2023-01-07 02:40 | Emergency (ER) | payer MEDICAID ==
[~2023-01-07] VITALS: Ht 167.6 cm; Wt 70.3 kg
[~2023-01-07 02:40] MED LIST changes: +AMOX1TAB8 PO; +DICL100G32 TP; +TRAM50TA3 PO; +[UNRECOGNIZED DRUG - CODE] PO
[2023-01-07 02:46] VITALS: BP 139/114; PULSE 109; RESP 23; O2SAT 99
[2023-01-08] MEDS ORDERED: AZIT250T4 PO (03:58)
[2023-01-08] MEDS ORDERED: TAM75 PO (03:59)
== END 2023-01-07 04:34 | disposition left against medical advice (07) ==
LOC: MED 02:40
DX: R07.9 Chest pain, unspecified (principal); R05.9 Cough, unspecified; R51.9 Headache, unspecified; R06.02 Shortness of breath; R11.0 Nausea; Z53.21 Procedure and treatment not carried out due to patient leaving prior to being seen by health care provider
CPT/HCPCS: 71045; 93005; 99281

== ENCOUNTER 2023-01-07 11:22 | Emergency (ER) | payer MEDICAID ==
[~2023-01-07] VITALS: Ht 162.6 cm; Wt 70.8 kg
[2023-01-07 11:37] VITALS: BP 151/79; RESP 16; TEMP 98.6; O2SAT 98
[2023-01-07 13:09] LABS: BASOPHILS % (AUTO) 0.6 % (0.0-2.0); EOSINOPHILS # (AUTO) 0.1 K/uL (0-0.4); EOSINOPHILS % (AUTO) 1.2 % (0.0-4.0); HEMATOCRIT 43.2 % (36-48); HEMOGLOBIN 14.7 g/dL (12.0-16.0); LYMPHOCYTES # (AUTO) 0.6 K/uL (2.5-16.5); LYMPHOCYTES % (AUTO) 12.2 % (20.5-51.1); MEAN CORPUSCULAR HEMOGLOBIN 30 pg (27-31); MEAN CORPUSCULAR HGB CONC 34 g/dL (33-37); MEAN CORPUSCULAR VOLUME 88.1 fL (80-94); MONOCYTES # (AUTO) 0.6 K/uL (0.8-1.0); MONOCYTES % (AUTO) 11.6 % (1.7-9.3); NEUTROPHILS # (AUTO) 3.7 K/uL (1.8-7.7); NEUTROPHILS % (AUTO) 74.4 % (42.2-75.2); PLATELET COUNT (AUTO) 211 K/uL (140-450); RED BLOOD CELL COUNT(AUTO) 4.91 MIL/uL (4.20-5.40); RED CELL DISTRIBUTION WIDTH 13.2 % (11.6-13.7)
[2023-01-07 13:22] LABS: ALANINE AMINOTRANSFERASE 33 U/L (12-78); ALBUMIN 3.4 g/dL (3.4-5.0); ALKALINE PHOSPHATASE 237 U/L (50-136); ANION GAP 12.6 (8-16); CALCIUM 8.3 mg/dL (8.5-10.1); CARBON DIOXIDE 29.4 mmol/L (21-32); CHLORIDE 99 mmol/L (98-107); CREATININE 0.7 mg/dL (0.6-1.3); GFR ARICAN-AMERICAN 113 mL/min (>90); GFR NON ARICAN-AMERICAN 93 mL/min (>90); GLUCOSE 362 mg/dL (74-106); LIPASE 26 U/L (16-77); TOTAL BILIRUBIN 0.5 mg/dL (0.0-1.0); TOTAL PROTEIN, SERUM 7.3 g/dL (6.4-8.2); UREA NITROGEN, BLOOD 9 mg/dL (7-18)
[2023-01-07 13:35] LABS: ASPARTATE AMINOTRANSFERASE 22 U/L (15-37)
[2023-01-07 13:36] LABS: SODIUM SERUM 137 mmol/L (136-145)
[2023-01-07 13:48] LABS: FLU A ANTIGEN negative (NEGATIVE); FLU B ANTIGEN negative (NEGATIVE)
[2023-01-08] MEDS ORDERED: AZIT250T4 PO (03:58)
[2023-01-08] MEDS ORDERED: TAM75 PO (03:59)
== END 2023-01-07 14:30 | disposition left against medical advice (07) ==
LOC: MED 11:22
DX: R05.9 Cough, unspecified (principal); R53.83 Other fatigue; M79.10 Myalgia, unspecified site; E11.9 Type 2 diabetes mellitus without complications; I11.9 Hypertensive heart disease without heart failure; Z88.8 Allergy status to other drugs, medicaments and biological substances; Z79.899 Other long term (current) drug therapy; Z79.4 Long term (current) use of insulin
CPT/HCPCS: 36415; 80053; 83690; 84484; 85025; 93005; 99281; 99284

== ENCOUNTER 2023-01-08 01:40 | Emergency (ER) | payer MEDICAID ==
[~2023-01-08] VITALS: Ht 167.6 cm; Wt 70.3 kg
[2023-01-08 01:50] VITALS: BP 122/74; PULSE 103; RESP 22; TEMP 99.3; O2SAT 99
[2023-01-08] MEDS ORDERED: guaiFENesin DM 200/20 MG-10 ML 10 ML UDC PO ONE (02:30)
[2023-01-08 03:06] LABS: FLU B ANTIGEN NEGATIVE (NEGATIVE)
[2023-01-08 03:07] LABS: FLU A ANTIGEN POSITIVE (NEGATIVE)
[2023-01-08] MEDS ORDERED: ACETAMINOPHEN EXTRA STRENGTH 500 MG TAB PO ONE (03:30)
[2023-01-08] MEDS ORDERED: KETOROLAC 60 MG/2 ML VIAL IM ONE (03:30)
[2023-01-08] MEDS ORDERED: AZIT250T4 PO (03:58)
[2023-01-08] MEDS ORDERED: TAM75 PO (03:59)
[2023-01-08 04:15] VITALS: BP 122/74; PULSE 103; RESP 22; TEMP 99.3; O2SAT 99
== END 2023-01-08 04:15 | disposition home or self-care (01) ==
LOC: MED 01:40
DX: J10.1 Influenza due to other identified influenza virus with other respiratory manifestations (principal); Z20.822 Contact with and (suspected) exposure to COVID-19; J18.9 Pneumonia, unspecified organism; E11.9 Type 2 diabetes mellitus without complications; I11.9 Hypertensive heart disease without heart failure; Z79.4 Long term (current) use of insulin; Z79.899 Other long term (current) drug therapy
CPT/HCPCS: 36415; 71045; 87426; 87804; 96372; 99284; G0480; J1885

== ENCOUNTER 2023-02-02 03:49 | Emergency (ER) | payer MEDICAID ==
[~2023-02-02] VITALS: Ht 170.2 cm; Wt 68.0 kg
[~2023-02-02 03:49] MED LIST changes: +AZIT250T4 PO; +TAM75 PO
[2023-02-02 03:50] VITALS: BP 133/77; PULSE 102; RESP 18; TEMP 97.8; O2SAT 98
[2023-02-02] MEDS ORDERED: BENZ100C6 PO (04:35)
[2023-02-02] MEDS ORDERED: PROM118S5 PO (04:35)
[2023-02-02] MEDS ORDERED: ACET-10509 PO (04:35)
[2023-02-02] MEDS ORDERED: HYDROcodone/APAP 5/325 MG 1 TAB TAB PO ONE (04:45)
[2023-02-02 05:04] VITALS: BP 130/78; PULSE 90; RESP 18; TEMP 97.8; O2SAT 98
== END 2023-02-02 05:04 | disposition home or self-care (01) ==
LOC: MED 03:49
DX: R05.9 Cough, unspecified (principal); J02.9 Acute pharyngitis, unspecified; I11.9 Hypertensive heart disease without heart failure; E11.9 Type 2 diabetes mellitus without complications; Z88.8 Allergy status to other drugs, medicaments and biological substances; Z79.899 Other long term (current) drug therapy; Z79.4 Long term (current) use of insulin
CPT/HCPCS: 71045; 99283

== ENCOUNTER 2023-03-30 03:50 | Emergency (ER) | payer MEDICAID ==
[~2023-03-30] VITALS: Ht 170.2 cm; Wt 80.7 kg
[~2023-03-30 03:50] MED LIST changes: +BENZ100C6 PO; +PROM118S5 PO
[2023-03-30 04:04] VITALS: BP 142/82; PULSE 108; RESP 18; TEMP 97.2; O2SAT 98
[2023-03-30] MEDS ORDERED: MORPHINE SULFATE 4 MG/ML SYR ONE (04:43)
[2023-03-30] MEDS: MORPHINE SULFATE 4 MG/ML SYR IM ONE (04:45)
[2023-03-30] MEDS ORDERED: GABA300C PO (06:12)
[2023-03-30] MEDS ORDERED: INSU100I7 SQ (06:12)
== END 2023-03-30 06:17 | disposition home or self-care (01) ==
LOC: MED 03:50
DX: E11.42 Type 2 diabetes mellitus with diabetic polyneuropathy (principal); M79.661 Pain in right lower leg; M79.662 Pain in left lower leg; I10 Essential (primary) hypertension; F17.210 Nicotine dependence, cigarettes, uncomplicated; Z71.6 Tobacco abuse counseling; Z95.1 Presence of aortocoronary bypass graft; Z79.899 Other long term (current) drug therapy; Z79.4 Long term (current) use of insulin; Z79.01 Long term (current) use of anticoagulants; Z88.8 Allergy status to other drugs, medicaments and biological substances
CPT/HCPCS: 96372; 99283; J2270

== ENCOUNTER 2023-04-13 00:15 | Emergency (ER) | payer MEDICAID ==
[~2023-04-13] VITALS: Ht 170.2 cm; Wt 71.7 kg
[~2023-04-13 00:15] MED LIST changes: +GABA300C PO; +INSU100I7 SQ
[2023-04-13 00:30] VITALS: BP 117/80; PULSE 70; RESP 17; TEMP 97.7; O2SAT 98
[2023-04-13] MEDS ORDERED: DICL20GE TP (01:14)
[2023-04-13] MEDS ORDERED: CYCL-711 PO (01:14)
[2023-04-13] MEDS ORDERED: METH-1681 PO (01:17)
[2023-04-13] MEDS: MORPHINE SULFATE 4 MG/ML SYR IM ONE (01:34)
[2023-04-13] MEDS: KETOROLAC 30 MG/ML VIAL IM ONE (01:35)
[2023-04-13] MEDS: LIDOCAINE 5% 1 EA PATCH TP ONE (01:36)
[2023-04-14] MEDS ORDERED: IBUP-2213 PO (07:20)
== END 2023-04-13 01:34 | disposition home or self-care (01) ==
LOC: MED 00:15
DX: S33.5XXA Sprain of ligaments of lumbar spine, initial encounter (principal); I11.9 Hypertensive heart disease without heart failure; E11.9 Type 2 diabetes mellitus without complications; Z88.8 Allergy status to other drugs, medicaments and biological substances; Z79.4 Long term (current) use of insulin; Z79.899 Other long term (current) drug therapy; X58.XXXA Exposure to other specified factors, initial encounter; Y93.89 Activity, other specified; Y92.89 Other specified places as the place of occurrence of the external cause; Y99.8 Other external cause status
CPT/HCPCS: 96372; 99283; J1885; J2270

== ENCOUNTER 2023-07-24 07:05 | Emergency (ER) | payer MEDICAID ==
[~2023-07-24] VITALS: Ht 170.2 cm; Wt 71.3 kg
[~2023-07-24 07:05] MED LIST changes: +DICL20GE TP; +METH-1681 PO; +NAPR-337 PO; -NAPR-54 PO
[2023-07-24 07:13] VITALS: BP 152/87; PULSE 95; RESP 14; TEMP 97.9; O2SAT 97
[2023-07-24 07:33] VITALS: BP 144/81; PULSE 91; RESP 15; TEMP 97.9; O2SAT 98
[2023-07-24] MEDS ORDERED: ONDANSETRON 4 MG/2 ML VIAL IVP ONE (07:35)
[2023-07-24] MEDS ORDERED: LOPERAMIDE 2 MG CAP PO ONE (07:35)
[2023-07-24] MEDS ORDERED: NACL 0.9% 1,000 ML IV SCH (07:35)
[2023-07-24] MEDS ORDERED: LOPE-143 PO (07:59)
[2023-07-24] MEDS ORDERED: ONDA-188 PO (07:59)
== END 2023-07-24 08:02 | disposition left against medical advice (07) ==
LOC: MED 07:05
DX: R11.2 Nausea with vomiting, unspecified (principal); E11.65 Type 2 diabetes mellitus with hyperglycemia; R19.7 Diarrhea, unspecified; R51.9 Headache, unspecified; I25.10 Atherosclerotic heart disease of native coronary artery without angina pectoris; I25.2 Old myocardial infarction; I10 Essential (primary) hypertension; Z95.1 Presence of aortocoronary bypass graft; Z79.1 Long term (current) use of non-steroidal anti-inflammatories (NSAID); Z79.2 Long term (current) use of antibiotics; Z79.4 Long term (current) use of insulin; Z79.899 Other long term (current) drug therapy; Z88.8 Allergy status to other drugs, medicaments and biological substances; Z88.5 Allergy status to narcotic agent
CPT/HCPCS: 82948; 99283

== ENCOUNTER 2023-10-10 07:09 | Emergency (ER) | payer MEDICAID ==
[~2023-10-10 07:09] MED LIST changes: -ACET-10509 PO; +ACET500T99 PO; +LOPE-143 PO; +ONDA-188 PO
== END 2023-10-10 07:26 | disposition left against medical advice (07) ==
LOC: MED 07:09
DX: R11.10 Vomiting, unspecified (principal); Z53.21 Procedure and treatment not carried out due to patient leaving prior to being seen by health care provider